=== PATIENT | male | born 1950 | race Caucasian/White ===

== ENCOUNTER 2017-09-24 12:11 | Emergency (ER) | payer MEDICARE, BC ==
[2017-09-24 12:45] VITALS: BP 156/75
[2017-09-24] MEDS ORDERED: Ketorolac 60 MG/2 ML SDV IM ONE (12:56)
--- NOTE | 2017-09-24 13:10 | EDM.PDOC ---
ED HPI GENERAL MEDICAL PROBLEM - General Chief Complaint: Back Pain or Injury Stated Complaint: BACK PAIN Time Seen by Provider: 09/24/17 12:40 Source of Information: Reports: Patient, Family History Limitations: Reports: No Limitations - History of Present Illness INITIAL COMMENTS - FREE TEXT/NARRATIVE: 67-year-old male with chronic back problems on large doses of chronic oxycodone and methadone presents with symptoms of discomfort radiating from his right shoulder through the middle of his back and down into the left buttock and left leg. He just finished a Medrol Dosepak 3 days ago. This was for allergies but he claims his back was no better while on the steroids. However he finished a steroid several days ago and the pain worsened over the past 3 days so there may be a correlation. No new trauma, falls, fevers or chills. Onset: Unknown/Unsure Severity: Moderate Associated Symptoms: Reports: Weakness. Denies: Chest Pain, Cough, Headaches, Nausea/Vomiting, Shortness of Breath Generalized Pain Score (Numeric/FACES): 10 - Related Data Allergies Allergy/AdvReac Type Severity Reaction Status Date / Time aspirin Allergy Severe Anaphylactic Verified 09/24/17 12:28 Shock cyclobenzaprine HCl Allergy Severe Anaphylactic Verified 09/24/17 12:28 [From Flexeril] Shock NSAIDS (Non-Steroidal Allergy Severe Anaphylactic Verified 09/24/17 12:28 Anti-Inflamma Shock Penicillins Allergy Severe Anaphylactic Verified 09/24/17 12:28 Shock procaine HCl [From Novocain] Allergy Severe Anaphylactic Verified 09/24/17 12:28 Shock Home Meds: Home Meds Carisoprodol [Soma] 3 tab PO DAILY 02/23/13 [History] Simvastatin [Zocor] 5 mg PO BEDTIME 02/23/13 [History] Flurazepam HCl 30 mg PO BEDTIME PRN 08/23/14 [History] Methadone 70 mg PO TID 08/23/14 [History] Ondansetron [Zofran] 4 mg PO Q4H PRN 08/23/14 [History] Rizatriptan [Maxalt] 10 mg PO ASDIRECTED PRN 08/23/14 [History] Albuterol [Proair HFA] 2 spray INH Q6H 09/01/15 [History] Ezetimibe [Zetia] 1 tab PO DAILY 09/01/15 [History] Fluticasone/Salmeterol [Advair 250-50 Diskus] 1 puff INH ASDIRECTED 09/01/15 [ History] Polyethylene Glycol [Polyox Wsr-301] 1 gm MC DAILY 09/01/15 [History] oxyCODONE 15 mg PO Q4H 09/01/15 [History] Past Medical History Other HEENT History: shingles in right eye Cardiovascular History: Reports: High Cholesterol Respiratory History: Reports: COPD Gastrointestinal History: Reports: GERD Musculoskeletal History: Reports: Back Pain, Chronic Neurological History: Reports: Migraines Other Dermatologic History: hx shingles - Infectious Disease History Infectious Disease History: Reports: C-Difficile, Measles, Mumps - Past Surgical History HEENT Surgical History: Reports: Oral Surgery GI Surgical History: Reports: Appendectomy, Cholecystectomy Neurological Surgical History: Reports: Discectomy Other Neurological Surgeries/Procedures: multiple back surguries Musculoskeletal Surgical History: Reports: Other (See Below) Other Musculoskeletal Surgeries/Procedures:: Aprox 13 to 14 back surgeries 1/2 procedures to replace and remove metal Social & Family History - Tobacco Use Smoking Status *Q: Current Every Day Smoker Years of Tobacco use: 55 Packs/Tins Daily: 0.5 Used Tobacco, but Quit: No Second Hand Smoke Exposure: Yes - Caffeine Use Caffeine Use: Reports: Coffee - Recreational Drug Use Recreational Drug Use: No ED ROS GENERAL - Review of Systems Review Of Systems: See Below Constitutional: Denies: Fever, Chills Respiratory: Denies: Shortness of Breath GI/Abdominal: Denies: Abdominal Pain, Nausea, Vomiting Musculoskeletal: Reports: Back Pain Neurological: Reports: Paresthesia (Left leg) ED EXAM, GENERAL - Physical Exam Exam: See Below Exam Limited By: No Limitations General Appearance: Alert, No Apparent Distress Respiratory/Chest: No Respiratory Distress Cardiovascular: Regular Rate, Rhythm Back Exam: Muscle Spasm, Paraspinal Tenderness (Very tender to palpation over the paralumbar spine bilaterally. Muscles are very tight.) Extremities: Other (Increased pain to the lower back and buttock with flexion of the left hip but no true radiculopathy). No: Pedal Edema Neurological: Alert, Oriented, No Motor/Sensory Deficits (He has some diffuse symmetric weakness but no asymmetry or focal weakness) Skin Exam: Warm, Dry Course - Vital Signs Last Recorded V/S: Last Vital Signs Temp 97.0 F 09/24/17 12:44 Pulse 90 09/24/17 12:44 Resp 16 09/24/17 12:44 BP 156/75 H 09/24/17 12:44 Pulse Ox 90 L 09/24/17 12:44 - Orders/Labs/Meds Meds: Medications Discontinued Medications Generic Name Dose Route Start Last Admin Trade Name Portia PRN Reason Stop Dose Admin Diazepam 10 mg 09/24/17 13:39 09/24/17 13:42 Valium. PO 09/24/17 13:40 10 mg ONETIME ONE Administration Ketorolac Tromethamine 60 mg 09/24/17 12:56 09/24/17 13:13 Toradol IM 09/24/17 12:57 60 mg ONETIME ONE Administration - Re-Assessments/Exams Free Text/Narrative Re-Assessment/Exam: 09/24/17 13:16 Patient was given 60 mg of Toradol IM. He has a history of "allergies to all NSAIDs" but I suspect he won't react to the Toradol. If he does he'll be given treatment. 09/24/17 13:42 30 minutes after the Toradol the patient was able to stand but still in significant discomfort and having spasm. No allergic reaction. He was given one 10 mg Valium tablet to take orally, and will take 50 mg of prednisone for the next 3-6 days. He should then recheck with his primary provider. Departure - Departure Time of Disposition: 13:52 Disposition: Home, Self-Care 01 Condition: Fair Clinical Impression: Acute exacerbation of chronic low back pain - Discharge Information Instructions: Back Pain, Adult, [id number] Referrals: PCP,None [Primary Care Provider] - Forms: ED Department Discharge Care Plan Goals: Take 5 pills of prednisone with food daily for the next 3-6 days. Use the Valium tablet for muscle relaxation for the rest of today and this evening. Continuing on your current medications. Recheck with your back specialist or a primary doctor in the next 1-2 weeks if not improving satisfactorily.
[2017-09-24] MEDS ORDERED: Diazepam 5 MG Tab PO ONE (13:39)
== END 2017-09-24 13:52 | disposition home or self-care (01) ==
LOC: JP.ED 12:11
DX: M54.5 Low back pain (principal); G89.29 Other chronic pain; E78.00 Pure hypercholesterolemia, unspecified; K21.9 Gastro-esophageal reflux disease without esophagitis; F17.210 Nicotine dependence, cigarettes, uncomplicated; Z88.6 Allergy status to analgesic agent; Z88.8 Allergy status to other drugs, medicaments and biological substances; Z88.0 Allergy status to penicillin; Z79.899 Other long term (current) drug therapy
CPT/HCPCS: 96372; 99283; A9270; J1885

== ENCOUNTER 2019-06-03 07:40 | Day surgery (SDC) | payer MEDICARE, OTHER ==
[2019-06-03] MEDS ORDERED: Propofol 200 MG/20 ML SDV ONE (08:14)
[2019-06-03] MEDS ORDERED: fentaNYL 100 MCG/2 ML SDV ONE (08:14)
[2019-06-03] MEDS ORDERED: Midazolam 1 MG/ML 2 ML SDV ONE (08:14)
[2019-06-03] MEDS ORDERED: Sodium Chloride 0.9% 1,000 ML IV SCH (09:00)
[2019-06-03 10:42] VITALS: BP 140/91; PULSE 74
--- NOTE | 2019-06-03 13:45 | PROC ---
DATE OF PROCEDURE: 06/03/2019 SURGEON: Trenton Armas MD PROCEDURE: Colonoscopy. PRE-PROCEDURE DIAGNOSIS: Positive FIT test. POSTPROCEDURE DIAGNOSES: 1. Positive FIT test. 2. Sigmoid diverticulosis. DESCRIPTION OF PROCEDURE: Risks and goals of the procedure reviewed with the patient. He gave informed consent to proceed. He was brought back to the endoscopy room. Sedation and monitoring provided by Mr. Valentino from the Anesthesia Service. Time-out was held prior to the procedure to confirm right patient, right site, right procedure, as well as identify any potential concerns concerning the procedure, of which there were none. He was placed in a left lateral decubitus position. After adequate sedation was achieved, digital rectal exam was performed, which was unremarkable. Following this, the flexible colonoscope was placed and advanced out through the colon to the cecum. Cecum was identified by the appendiceal orifice and the ileocecal valve. Scope was then slowly withdrawn back through the length of the colon to the rectum where it was retroflexed, straightened, and removed. He was noted to have scattered sigmoid diverticula. No other mucosal polyps, masses, or lesions were seen and the procedure was otherwise completed without complication. He will be monitored in [facility] in outpatient area until fully recovered from IV sedation and discharged to home. Trenton Armas MD /[id number]
== END 2019-06-03 10:44 | disposition home or self-care (01) ==
LOC: JP.SDS 07:40
PROVIDERS: ATTEND Hospitalist
DX: R19.5 Other fecal abnormalities (principal); K57.30 Diverticulosis of large intestine without perforation or abscess without bleeding; J44.9 Chronic obstructive pulmonary disease, unspecified; F17.200 Nicotine dependence, unspecified, uncomplicated
CPT/HCPCS: 45378; J2250; J2704; J3010; J7030

== ENCOUNTER 2019-11-08 06:38 | Emergency (ER) | payer MEDICARE, OTHER ==
[2019-11-08 07:00] VITALS: BP 106/60; PULSE 82
--- NOTE | 2019-11-08 07:18 | EDM.PDOC ---
ED HPI GENERAL MEDICAL PROBLEM - General Chief Complaint: General Stated Complaint: neck pain Time Seen by Provider: 11/08/19 07:16 Source of Information: Reports: Patient History Limitations: Reports: No Limitations - History of Present Illness INITIAL COMMENTS - FREE TEXT/NARRATIVE: 69-year-old male with chronic neck and back pain from previous injuries and surgeries, was helping move heavy objects 2 days ago when he was pushing a large heavy object on wheels when the wheels hit an uneven spot and the object tipped sideways and he had to grab on and hold on to keep it from falling over. He felt a pull in his left neck and upper back, and now has intense sharp pain on the inside of the shoulder blade at the base of the neck and some slight tingling in his left arm in the fourth and fifth finger. No weakness. He is already on oxycodone and muscle relaxers, but he said he has responded well to steroids in the past. He is allergic to all anti-inflammatories. Onset: Other (2 days ago) Location: Reports: Neck, Back Quality: Reports: Ache, Burning, Sharp, Stabbing Worsens with: Reports: Movement Associated Symptoms: Reports: Other (Having difficulty sleeping due to the pain) Left Neck Pain Score (Numeric/FACES): 10 - Related Data Allergies Allergy/AdvReac Type Severity Reaction Status Date / Time aspirin Allergy Severe Anaphylactic Verified 11/08/19 06:58 Shock cyclobenzaprine HCl Allergy Severe Anaphylactic Verified 11/08/19 06:58 [From Flexeril] Shock NSAIDS (Non-Steroidal Allergy Severe Anaphylactic Verified 11/08/19 06:58 Anti-Inflamma Shock Penicillins Allergy Severe Anaphylactic Verified 11/08/19 06:58 Shock procaine HCl [From Novocain] Allergy Severe Anaphylactic Verified 11/08/19 06:58 Shock bee venom protein (honey bee) Allergy Other Verified 11/08/19 06:58 codeine Allergy Hives Verified 11/08/19 06:58 Home Meds: Home Meds Simvastatin [Zocor] 40 mg PO BEDTIME 02/23/13 [History] Ondansetron [Zofran] 4 mg PO Q4H PRN 08/23/14 [History] Rizatriptan [Maxalt] 10 mg PO ASDIRECTED PRN 05/23/15 [History] Albuterol [Proair HFA] 2 spray INH Q6H 09/01/15 [History] Fluticasone Propion/Salmeterol [Advair 250-50 Diskus] 1 puff INH ASDIRECTED PRN 09/01/15 [History] oxyCODONE 15 mg PO QID 09/01/15 [History] Betamethasone Dipropionate [Diprolene AF 0.05% Crm] 1 applic TOP BID 05/30/19 [History] Budesonide/Formoterol Fumarate [Symbicort 160-4.5 Mcg Inhaler] 2 puff IH BID 05/30/19 [History] DULoxetine [Cymbalta] 20 mg PO DAILY 05/30/19 [History] EPINEPHrine [Epipen] 0.3 mg IM ASDIRECTED PRN 05/30/19 [History] Lidocaine 5% [Lidoderm 5%] 1 patch TOP DAILY 05/30/19 [History] Mirtazapine [Remeron] 15 mg PO BEDTIME 05/30/19 [History] Naloxone HCl [Narcan] 4 mg NS ASDIRECTED PRN 05/30/19 [History] Triamcinolone Acetonide [Triamcinolone Acetonide 0.1% Crm] 1 applic TOP ASDIRECTED 05/30/19 [History] cloNIDine [Catapres] 0.1 mg PO Q8H 05/30/19 [History] hydrOXYzine HCL [Hydroxyzine HCl] 50 mg PO TID PRN 05/30/19 [History] raNITIdine HCL [Zantac] 150 mg PO BID PRN 05/30/19 [History] tiZANidine [Zanaflex] 4 mg PO Q8H 05/30/19 [History] Past Medical History HEENT History: Reports: Allergic Rhinitis Other HEENT History: shingles in right eye Cardiovascular History: Reports: High Cholesterol Respiratory History: Reports: COPD, Other (See Below) Other Respiratory History: Lung nodules Gastrointestinal History: Reports: GERD Musculoskeletal History: Reports: Back Pain, Chronic Neurological History: Reports: Migraines Psychiatric History: Reports: Anxiety, Depression, Other (See Below) Other Psychiatric History: adjustment disorder with depression. memory loss Dermatologic History: Reports: Psoriasis Other Dermatologic History: hx shingles - Infectious Disease History Infectious Disease History: Reports: C-Difficile, Measles, Mumps - Past Surgical History Head Surgeries/Procedures: Reports: None HEENT Surgical History: Reports: Oral Surgery Cardiovascular Surgical History: Reports: None Respiratory Surgical History: Reports: None Other Respiratory Surgeries/Procedures: unsure of work up on lung nodules GI Surgical History: Reports: Appendectomy, Cholecystectomy, Colonoscopy, EGD Other GI Surgeries/Procedures: lesion pancrease Neurological Surgical History: Reports: Discectomy, Laminectomy, Spinal Fusion Other Neurological Surgeries/Procedures: multiple back surguries Musculoskeletal Surgical History: Reports: Other (See Below) Other Musculoskeletal Surgeries/Procedures:: Aprox 13 to 14 back surgeries 1/2 procedures to replace and remove metal Dermatological Surgical History: Reports: None Social & Family History - Family History Family Medical History: Noncontributory - Tobacco Use Smoking Status *Q: Current Every Day Smoker Years of Tobacco use: 55 Packs/Tins Daily: 0.5 Used Tobacco, but Quit: No Second Hand Smoke Exposure: Yes - Caffeine Use Caffeine Use: Reports: Coffee - Recreational Drug Use Recreational Drug Use: No ED ROS GENERAL - Review of Systems Review Of Systems: See Below Constitutional: Denies: Fever, Chills Respiratory: Denies: Shortness of Breath, Cough Cardiovascular: Denies: Chest Pain GI/Abdominal: Denies: Abdominal Pain, Nausea, Vomiting Skin: Reports: Rash (Patient does have a rash in his left groin for the past 4 days he wants looked at) Neurological: Reports: Paresthesia (Paresthesias in the fourth and fifth fingers of the left hand, no weakness) Hematologic/Lymphatic: Reports: Other (Developed some bruising on his arms couple of days ago which he is concerned about) ED EXAM, GENERAL - Physical Exam Exam: See Below Exam Limited By: No Limitations General Appearance: Alert, No Apparent Distress, Other (He occasionally moves a certain way which causes a shot of pain in his back and he winces) Head: Atraumatic Neck: Other (Tender fairly diffusely to palpation but more intensely painful in the upper rhomboids on the left side in the mid paracervical muscles in the neck on the right side) Respiratory/Chest: No Respiratory Distress, Other (Chronic hypoxia from smoking and COPD, current O2 sats are 88%) Back Exam: Other (Very tender to palpation of the upper rhomboid on the left side) Neurological: Alert, Oriented, Other (Grasp strength of both hands is symmetric, he has full range of motion of the right and left shoulder actively but it does cause a pinch of discomfort when abducting the left arm) Psychiatric: Normal Affect, Normal Mood Skin Exam: Warm, Dry Course - Vital Signs Last Recorded V/S: Last Vital Signs Temp 97.7 F 11/08/19 07:03 Pulse 82 11/08/19 07:03 Resp 17 11/08/19 07:03 BP 106/60 11/08/19 07:03 Pulse Ox 90 L 11/08/19 07:10 - Re-Assessments/Exams Free Text/Narrative Re-Assessment/Exam: 11/08/19 07:34 Patient says he has responded well to steroids in the past, is allergic to all anti-inflammatories and is already on oxycodone. We will try a Medrol Dosepak he can recheck with his clinic physicians next week if not improving satisfactorily. 11/08/19 07:42 Reassured him about the bruising, likely related to his activity 2 days ago and he may be more prone to this while on the steroids. He was given some triamcinolone to use on the rash in his groin, I do not think it is fungus as it came on fairly suddenly within the last 4 days. If not improving he can recheck that next week as well. Departure - Departure Time of Disposition: 07:48 Disposition: Home, Self-Care 01 Clinical Impression: Rash of groin Strain of rhomboid muscle Qualifiers: Encounter type: initial encounter Qualified Code(s): S29.012A - Strain of muscle and tendon of back wall of thorax, initial encounter - Discharge Information Instructions: Muscle Strain, [id number] Referrals: Huey Ching MD [Primary Care Provider] - Forms: ED Department Discharge Care Plan Goals: Continue your current medications, use the Medrol Dosepak taper as prescribed and recheck next week if not improving satisfactorily. Increase activity as tolerated. Sepsis Event Note (ED) - Evaluation Sepsis Screening Result: No Definite Risk - Focused Exam Vital Signs: Vital Signs Temp Pulse Resp BP Pulse Ox 11/08/19 07:10 90 L 11/08/19 07:03 97.7 F 82 17 106/60 88 L 11/08/19 06:59 97.7 F 82 17 106/60 88 L
== END 2019-11-08 07:48 | disposition home or self-care (01) ==
LOC: JP.ED 06:38
DX: S29.012A Strain of muscle and tendon of back wall of thorax, initial encounter (principal); R21 Rash and other nonspecific skin eruption; E78.00 Pure hypercholesterolemia, unspecified; J44.9 Chronic obstructive pulmonary disease, unspecified; F41.9 Anxiety disorder, unspecified; F32.9 Major depressive disorder, single episode, unspecified; F17.210 Nicotine dependence, cigarettes, uncomplicated; Z88.6 Allergy status to analgesic agent; Z88.8 Allergy status to other drugs, medicaments and biological substances; Z88.0 Allergy status to penicillin; Z88.5 Allergy status to narcotic agent; Z91.030 Bee allergy status; Z79.899 Other long term (current) drug therapy; X50.9XXA Other and unspecified overexertion or strenuous movements or postures, initial encounter
CPT/HCPCS: 99283

== ENCOUNTER 2020-06-17 13:50 | Observation (INO) | payer MEDICARE, OTHER ==
[2020-06-17] MEDS ORDERED: HYDROmorphone 0.5 MG/0.5 ML Syringe IVPUSH ONE ×2 (15:21→17:02)
[2020-06-17] MEDS ORDERED: Iopamidol 612 MG/ML 100 ML Bottle IV PRN (15:26)
[2020-06-17] MEDS ORDERED: Sodium Chloride 0.9% 71 ML IV ONE (15:26)
--- NOTE | 2020-06-17 15:36 | EDM.PDOC ---
ED HPI GENERAL MEDICAL PROBLEM - General Chief Complaint: Abdominal Pain Stated Complaint: ABD PAIN Time Seen by Provider: 06/17/20 15:25 Source of Information: Reports: Patient, Old Records, RN History Limitations: Reports: No Limitations - History of Present Illness INITIAL COMMENTS - FREE TEXT/NARRATIVE: 69 yo male smoker who denies alcohol use presents with a week of progressive epigastric pain. Is only able to swallow liquids now and even has increased pain with drinking. No nausea, vomiting, or fever. Has a pHx remotely of "infectious ileitis" and states that this feels the same. Has not discussed his condition at any time over the past week with his primary care provider. Onset: Gradual Duration: Week(s): (~1), Getting Worse Location: Reports: Abdomen (epigastrium) Quality: Reports: Ache Severity: Moderate Improves with: Reports: Other (not eating or drinking) Worsens with: Reports: Eating (and drinking to less of an extent than eating. ) Context: Reports: Other (See HPI) Associated Symptoms: Reports: No Other Symptoms Treatments MANAGER DATABASE: Reports: Other (see below) (none) - Related Data Allergies Allergy/AdvReac Type Severity Reaction Status Date / Time aspirin Allergy Severe Anaphylactic Verified 06/17/20 14:57 Shock cyclobenzaprine HCl Allergy Severe Anaphylactic Verified 06/17/20 14:57 [From Flexeril] Shock NSAIDS (Non-Steroidal Allergy Severe Anaphylactic Verified 06/17/20 14:57 Anti-Inflamma Shock Penicillins Allergy Severe Anaphylactic Verified 06/17/20 14:57 Shock procaine HCl [From Novocain] Allergy Severe Anaphylactic Verified 06/17/20 14:57 Shock bee venom protein (honey bee) Allergy Other Verified 06/17/20 14:57 codeine Allergy Hives Verified 06/17/20 14:57 Home Meds: Home Meds Simvastatin [Zocor] 40 mg PO BEDTIME 02/23/13 [History] Ondansetron [Zofran] 4 mg PO Q4H PRN 08/23/14 [History] Rizatriptan [Maxalt] 10 mg PO ASDIRECTED PRN 08/23/14 [History] Albuterol [Proair HFA] 2 spray INH Q6H 09/01/15 [History] Fluticasone Propion/Salmeterol [Advair 250-50 Diskus] 1 puff INH ASDIRECTED PRN 09/01/15 [History] oxyCODONE 15 mg PO QID 09/01/15 [History] Betamethasone Dipropionate [Diprolene AF 0.05% Crm] 1 applic TOP BID 05/30/19 [History] Budesonide/Formoterol Fumarate [Symbicort 160-4.5 Mcg Inhaler] 2 puff IH BID 05/30/19 [History] DULoxetine [Cymbalta] 20 mg PO DAILY 05/30/19 [History] EPINEPHrine [Epipen] 0.3 mg IM ASDIRECTED PRN 05/30/19 [History] Lidocaine 5% [Lidoderm 5%] 1 patch TOP DAILY 05/30/19 [History] Mirtazapine [Remeron] 15 mg PO BEDTIME 05/30/19 [History] Naloxone HCl [Narcan] 4 mg NS ASDIRECTED PRN 05/30/19 [History] Triamcinolone Acetonide [Triamcinolone Acetonide 0.1% Crm] 1 applic TOP ASDIRECTED 05/30/19 [History] cloNIDine [Catapres] 0.1 mg PO Q8H PRN 05/30/19 [History] raNITIdine HCL [Zantac] 150 mg PO BID PRN 05/30/19 [History] tiZANidine [Zanaflex] 4 mg PO QID 05/30/19 [History] Past Medical History HEENT History: Reports: Allergic Rhinitis Other HEENT History: shingles in right eye Cardiovascular History: Reports: High Cholesterol Respiratory History: Reports: COPD, Other (See Below) Other Respiratory History: Lung nodules Gastrointestinal History: Reports: GERD Musculoskeletal History: Reports: Back Pain, Chronic Neurological History: Reports: Migraines Psychiatric History: Reports: Anxiety, Depression, Other (See Below) Other Psychiatric History: adjustment disorder with depression. memory loss Dermatologic History: Reports: Psoriasis Other Dermatologic History: hx shingles - Infectious Disease History Infectious Disease History: Reports: C-Difficile, Measles, Mumps - Past Surgical History Head Surgeries/Procedures: Reports: None HEENT Surgical History: Reports: Oral Surgery Cardiovascular Surgical History: Reports: None Respiratory Surgical History: Reports: None Other Respiratory Surgeries/Procedures: unsure of work up on lung nodules GI Surgical History: Reports: Appendectomy, Cholecystectomy, Colonoscopy, EGD Other GI Surgeries/Procedures: lesion pancrease Neurological Surgical History: Reports: Discectomy, Laminectomy, Spinal Fusion Other Neurological Surgeries/Procedures: multiple back surguries Musculoskeletal Surgical History: Reports: Other (See Below) Other Musculoskeletal Surgeries/Procedures:: Aprox 13 to 14 back surgeries 1/2 procedures to replace and remove metal Dermatological Surgical History: Reports: None Social & Family History - Family History Family Medical History: No Pertinent Family History - Tobacco Use Tobacco Use Status *Q: Current Every Day Tobacco User Years of Tobacco use: 60 Packs/Tins Daily: 1 Used Tobacco, but Quit: No - Caffeine Use Caffeine Use: Reports: Coffee - Recreational Drug Use Recreational Drug Use: No ED ROS GENERAL - Review of Systems Review Of Systems: See Below Constitutional: Reports: No Symptoms HEENT: Reports: No Symptoms Respiratory: Reports: No Symptoms Cardiovascular: Reports: No Symptoms Endocrine: Reports: No Symptoms GI/Abdominal: Reports: Abdominal Pain : Reports: No Symptoms Musculoskeletal: Reports: No Symptoms Skin: Reports: No Symptoms Neurological: Reports: No Symptoms ED EXAM, GI/ABD - Physical Exam Exam: See Below Exam Limited By: No Limitations General Appearance: Alert, WD/WN, No Apparent Distress Eyes: Bilateral: Normal Appearance Ears: Normal External Exam, Normal Canal, Hearing Grossly Normal Nose: Normal Inspection, No Blood Throat/Mouth: Normal Inspection, Normal Lips, Normal Oropharynx, Normal Voice, No Airway Compromise Head: Atraumatic, Normocephalic Neck: Normal Inspection Respiratory/Chest: No Respiratory Distress, Lungs Clear, Normal Breath Sounds, No Accessory Muscle Use Cardiovascular: Regular Rate, Rhythm, No Edema GI/Abdominal Exam: Normal Bowel Sounds, Soft, No Distention, Guarding, Tender (epigastrium). No: Non-Tender, Distended, Rigid, Rebound Extremities: Normal Inspection, Normal Range of Motion, Non-Tender, No Pedal Edema Neurological: Alert, Oriented, CN II-XII Intact, Normal Cognition, No Motor/Sensory Deficits Psychiatric: Normal Affect, Normal Mood Skin Exam: Warm, Dry, Intact, Normal Color, No Rash Course - Vital Signs Last Recorded V/S: Last Vital Signs Temp 36.2 C 06/17/20 15:07 Pulse 67 06/17/20 17:01 Resp 20 06/17/20 15:07 BP 132/93 H 06/17/20 17:01 Pulse Ox 98 06/17/20 15:51 - Orders/Labs/Meds Orders: Active Orders 24 hr Category Date Time Status CRP [C-REACTIVE PROTEIN] [CHEM] Stat Lab 06/17/20 17:41 Ordered Sodium Chloride 0.9% [Normal Saline] 1,000 ml Med 06/17/20 16:30 Active IV ASDIRECTED Sodium Chloride 0.9% [Saline Flush] Med 06/17/20 15:20 Active 10 ml FLUSH ASDIRECTED PRN Sodium Chloride 0.9% [Saline Flush] Med 06/17/20 15:26 Active 10 ml FLUSH ONETIME PRN Saline Lock Insert [OM.PC] Routine Oth 06/17/20 15:20 Ordered Medication Orders Sodium Chloride (Normal Saline) 1,000 mls @ 150 mls/hr IV ASDIRECTED GREER Last Admin: 06/17/20 16:35 Dose: 150 mls/hr Documented by: PAUL Sodium Chloride (Sodium Chloride 0.9% 10 Ml Syringe) 10 ml FLUSH ASDIRECTED PRN PRN Reason: Keep Vein Open Last Admin: 06/17/20 16:10 Dose: 10 ml Documented by: Admin: 06/17/20 16:09 Dose: 10 ml Documented by: PAUL Sodium Chloride (Sodium Chloride 0.9% 10 Ml Syringe) 10 ml FLUSH ONETIME PRN PRN Reason: PER RADIOLOGY PROTOCOL Last Admin: 06/17/20 16:30 Dose: 10 ml Documented by: Admin: 06/17/20 16:10 Dose: 10 ml Documented by: PAUL Labs: Laboratory Tests 06/17/20 06/17/20 06/17/20 Range/Units 15:19 15:42 15:42 WBC 8.4 (4.5-11.0) K/uL RBC 5.40 (4.30-5.90) M/uL Hgb 15.2 H (12.0-15.0) g/dL Hct 48.0 (40.0-54.0) % MCV 89 (80-98) fL MCH 28 (27-31) pg MCHC 32 (32-36) % Plt Count 288 (150-400) K/uL Sodium 135 L (140-148) mmol/L Potassium 4.1 (3.6-5.2) mmol/L Chloride 98 L (100-108) mmol/L Carbon Dioxide 29 (21-32) mmol/L Anion Gap 12.1 (5.0-14.0) mmol/L BUN 7 (7-18) mg/dL Creatinine 0.9 (0.8-1.3) mg/dL Est Cr Clr Drug Dosing 73.50 mL/min Estimated GFR (MDRD) > 60 (>60) Glucose 84 (74-106) mg/dL Calcium 8.9 (8.5-10.1) mg/dL Total Bilirubin (0.2-1.0) mg/dL Direct Bilirubin (0.0-0.2) mg/dL Indirect Bilirubin AST (15-37) U/L ALT (12-78) U/L Alkaline Phosphatase (46-116) U/L Total Protein (6.4-8.2) g/dL Albumin (3.4-5.0) g/dL Globulin (2.3-3.5) g/dL Albumin/Globulin Ratio (1.2-2.2) Lipase 31 L (73-393) U/L 03/17/21 Range/Units 16:35 WBC (4.5-11.0) K/uL RBC (4.30-5.90) M/uL Hgb (12.0-15.0) g/dL Hct (40.0-54.0) % MCV (80-98) fL MCH (27-31) pg MCHC (32-36) % Plt Count (150-400) K/uL Sodium (140-148) mmol/L Potassium (3.6-5.2) mmol/L Chloride (100-108) mmol/L Carbon Dioxide (21-32) mmol/L Anion Gap (5.0-14.0) mmol/L BUN (7-18) mg/dL Creatinine (0.8-1.3) mg/dL Est Cr Clr Drug Dosing mL/min Estimated GFR (MDRD) (>60) Glucose (74-106) mg/dL Calcium (8.5-10.1) mg/dL Total Bilirubin 0.5 D (0.2-1.0) mg/dL Direct Bilirubin 0.16 (0.0-0.2) mg/dL Indirect Bilirubin 0.34 AST 20 (15-37) U/L ALT 27 (12-78) U/L Alkaline Phosphatase 102 (46-116) U/L Total Protein 6.5 (6.4-8.2) g/dL Albumin 3.6 (3.4-5.0) g/dL Globulin 2.9 (2.3-3.5) g/dL Albumin/Globulin Ratio 1.2 (1.2-2.2) Lipase (73-393) U/L Meds: Medications Generic Name Dose Route Start Last Admin Trade Name Freq PRN Reason Stop Dose Admin Sodium Chloride 1,000 mls @ 150 mls/hr 06/17/20 16:30 06/17/20 16:35 Normal Saline IV 150 mls/hr ASDIRECTED GREER Administration Sodium Chloride 10 ml 06/17/20 15:20 06/17/20 16:10 Sodium Chloride 0.9% 10 Ml Syringe FLUSH 10 ml ASDIRECTED PRN Administration Keep Vein Open Sodium Chloride 10 ml 06/17/20 15:26 06/17/20 16:30 Sodium Chloride 0.9% 10 Ml Syringe FLUSH 10 ml ONETIME PRN Administration PER RADIOLOGY PROTOCOL Discontinued Medications Generic Name Dose Route Start Last Admin Trade Name Freq PRN Reason Stop Dose Admin Hydromorphone HCl 0.25 mg 06/17/20 15:21 06/17/20 16:10 Hydromorphone 0.5 Mg/0.5 Ml Syringe IVPUSH 06/17/20 15:22 0.25 mg ONETIME ONE Administration Hydromorphone HCl 0.5 mg 06/17/20 17:02 06/17/20 17:12 Hydromorphone 0.5 Mg/0.5 Ml Syringe IVPUSH 06/17/20 17:03 0.5 mg ONETIME ONE Administration Sodium Chloride 71 mls @ 3 mls/sec 06/17/20 15:26 06/17/20 16:30 Normal Saline IV 06/17/20 15:27 3 mls/sec ONETIME ONE Administration Iopamidol 100 ml 06/17/20 15:26 06/17/20 16:31 Iopamidol 612 Mg/Ml 100 Ml Bottle IV 100 ml . DIRECTED PRN Administration RADIOLOGY EXAM - Radiology Interpretation Free Text/Narrative:: IMPRESSION: 1. Status post cholecystectomy. 2. Nonobstructive dilatation of the biliary duct system with extrahepatic common bile duct measuring 13 mm in diameter on the pancreatic duct measuring 6 mm in diameter; if clinically needed, suggest obtaining an MRCP. 3. Negative CT abdomen and pelvis with intravenous contrast otherwise. Please note that all CT scans at this facility use dose modulation, iterative reconstruction, and/or weight-based dosing when appropriate to reduce radiation dose to as low as reasonably achievable. Dictated by Samantha Daniel MD @ Jun 17 2020 5:03PM CT abd/pelvis with IV contrast- CT Results Date: 06/17/20 CT Results Time: 17:13 Departure - Departure Time of Disposition: 17:50 Disposition: Refer to Observation Condition: Fair Clinical Impression: Epigastric pain - Discharge Information *PRESCRIPTION DRUG MONITORING PROGRAM REVIEWED*: Not Applicable *COPY OF PRESCRIPTION DRUG MONITORING REPORT IN PATIENT [place]: Not Applicable Referrals: Huey Ching MD [Primary Care Provider] - Forms: ED Department Discharge Sepsis Event Note (ED) - Evaluation Sepsis Screening Result: No Definite Risk - Focused Exam Vital Signs: Vital Signs Temp Pulse Resp BP Pulse Ox 06/17/20 17:01 67 132/93 H 06/17/20 15:51 68 122/86 98 06/17/20 15:07 36.2 C 70 20 116/79 89 L 06/17/20 14:30 36.4 C 89 22 H 116/79 94 L - My Orders Last 24 Hours: My Active Orders 06/17/20 15:20 Sodium Chloride 0.9% [Saline Flush] 10 ml FLUSH ASDIRECTED PRN Saline Lock Insert [OM.PC] Routine 06/17/20 15:26 Sodium Chloride 0.9% [Saline Flush] 10 ml FLUSH ONETIME PRN 06/17/20 16:30 Sodium Chloride 0.9% [Normal Saline] 1,000 ml IV ASDIRECTED 06/17/20 17:41 CRP [C-REACTIVE PROTEIN] [CHEM] Stat - Assessment/Plan Last 24 Hours: My Active Orders 06/17/20 15:20 Sodium Chloride 0.9% [Saline Flush] 10 ml FLUSH ASDIRECTED PRN Saline Lock Insert [OM.PC] Routine 06/17/20 15:26 Sodium Chloride 0.9% [Saline Flush] 10 ml FLUSH ONETIME PRN 06/17/20 16:30 Sodium Chloride 0.9% [Normal Saline] 1,000 ml IV ASDIRECTED 06/17/20 17:41 CRP [C-REACTIVE PROTEIN] [CHEM] Stat
[2020-06-17] MEDS: Sodium Chloride 0.9% 10 ML Syringe FLUSH PRN ×4 (16:09→16:30)
[2020-06-17] MEDS ORDERED: Sodium Chloride 0.9% 1,000 ML IV SCH (16:30)
--- NOTE | 2020-06-17 17:10 | CRLCT ---
INDICATION: Epigastric abdominal pain; history of uveitis. Comparison: None. TECHNIQUE: CT abdomen and pelvis with intravenous contrast; coronal and sagittal reformats. FINDINGS: No focal hepatic or splenic pathology. No pancreatic pathology. Status post cholecystectomy. Nonobstructive dilatation of the biliary duct system with the extrahepatic common bile duct measuring 13 mm in diameter. Dilatation of the pancreatic duct measuring 6.3 mm in diameter. No evidence of choledocholithiasis. No mass lesions identified within the pancreatic head. No abnormal intra pulmonary nodular densities are identified through the lung bases. No evidence of pleural effusion. No adrenal pathology. No kidney stones or obstructive uropathy. No retroperitoneal lymphadenopathy. No evidence of abdominal or pelvic ascites. Diverticulosis sigmoid colon without any CT evidence of diverticulitis or abscess. Enlarged prostate gland. Copious amounts of retained stool identified in the colon. The appendix is not clearly visualized; no inflammatory changes surrounding the cecum. IMPRESSION: 1. Status post cholecystectomy. 2. Nonobstructive dilatation of the biliary duct system with extrahepatic common bile duct measuring 13 mm in diameter on the pancreatic duct measuring 6 mm in diameter; if clinically needed, suggest obtaining an MRCP. 3. Negative CT abdomen and pelvis with intravenous contrast otherwise. Please note that all CT scans at this facility use dose modulation, iterative reconstruction, and/or weight-based dosing when appropriate to reduce radiation dose to as low as reasonably achievable. Dictated by Samantha Daniel MD @ Jun 17 2020 5:03PM Signed by Dr. Samantha Daniel @ Jun 17 2020 5:08PM
[2020-06-17] MEDS ORDERED: Pantoprazole 40 MG Vial IVPUSH SCH (17:45)
[2020-06-17] MEDS ORDERED: Acetaminophen 325 MG Tab PO PRN (19:22)
[2020-06-17] MEDS ORDERED: LORazepam 2 MG/ML SDV IV PRN (19:22)
[2020-06-17] MEDS ORDERED: cloNIDine 0.1 MG Tab PO PRN (19:22)
[2020-06-17] MEDS ORDERED: HYDROmorphone/Normal Saline 15 MG/30 ML PCA IV PRN (19:22)
[2020-06-17] MEDS ORDERED: Albuterol 0.083% 2.5 MG/3 ML Neb Soln NEB PRN (19:22)
[2020-06-17] MEDS ORDERED: Naloxone 0.4 MG/ML SDV IVPUSH PRN (19:22)
[2020-06-17] MEDS ORDERED: Bisacodyl 5 MG Tab PO PRN (19:22)
[2020-06-17] MEDS ORDERED: Docusate Sodium 100 MG Cap PO PRN (19:22)
[2020-06-17] MEDS ORDERED: Ondansetron 4 MG Tab.DIS PO PRN (19:22)
[2020-06-17] MEDS: Dextrose 5%-Lactated Ringers 1,000 ML IV SCH (20:24)
[2020-06-17] MEDS ORDERED: Formoterol/Mometasone 200-5 MCG 8.8 GM Inhaler IH SCH (21:00)
[2020-06-17] MEDS ORDERED: Pantoprazole 40 MG Vial IVPUSH ONE (21:30)
--- NOTE | 2020-06-17 21:31 | PCM.HP.2 ---
H&P History of Present Illness - General Date of Service: 06/17/20 Admit Problem/Dx: Admission Diagnosis/Problem Admission Diagnosis/Problem Epigastric pain Source of Information: Patient, Provider, RN History Limitations: Reports: No Limitations - History of Present Illness Initial Comments - Free Text/Narative: chief complaint: can't swallow 69 yo male smoker who denies alcohol use presents with a week of progressive epigastric pain. Is only able to swallow liquids now and even has increased pain with drinking. No nausea, vomiting, or fever. Has a pHx remotely of "infectious ileitis" and states that this feels the same. Has not discussed his condition at any time over the past week with his primary care provider. Onset: Gradual Onset of Symptoms: Reports: Gradual (sick for 7 days but report slowly losing wt over the past 2 years) Duration of Symptoms: Reports: Week(s):, Constant, Other (reports has been losing weight ) Location: Reports: Neck, Abdomen Quality: Reports: Other (painful swallowing and pain in abdomen) Improves with: Reports: None Worsens with: Reports: Eating Associated Symptoms: Reports: Loss of Appetite Upper Abdomen Pain Score (Numeric/FACES): 8 Back Pain Score (Numeric/FACES): 8 - Related Data Allergies/Adverse Reactions: Allergies Allergy/AdvReac Type Severity Reaction Status Date / Time aspirin Allergy Severe Anaphylactic Verified 06/17/20 14:57 Shock cyclobenzaprine HCl Allergy Severe Anaphylactic Verified 06/17/20 14:57 [From Flexeril] Shock NSAIDS (Non-Steroidal Allergy Severe Anaphylactic Verified 06/17/20 14:57 Anti-Inflamma Shock Penicillins Allergy Severe Anaphylactic Verified 06/17/20 14:57 Shock procaine HCl [From Novocain] Allergy Severe Anaphylactic Verified 06/17/20 14:57 Shock bee venom protein (honey bee) Allergy Other Verified 06/17/20 14:57 codeine Allergy Hives Verified 06/17/20 14:57 Home Medications: Home Meds Simvastatin [Zocor] 40 mg PO BEDTIME 02/23/13 [History] Ondansetron [Zofran] 4 mg PO Q4H PRN 08/23/14 [History] Rizatriptan [Maxalt] 10 mg PO ASDIRECTED PRN 08/23/14 [History] Albuterol [Proair HFA] 2 spray INH Q6H 09/01/15 [History] Fluticasone Propion/Salmeterol [Advair 250-50 Diskus] 1 puff INH ASDIRECTED PRN 09/01/15 [History] oxyCODONE 15 mg PO QID 09/01/15 [History] Betamethasone Dipropionate [Diprolene AF 0.05% Crm] 1 applic TOP BID 05/30/19 [History] Budesonide/Formoterol Fumarate [Symbicort 160-4.5 Mcg Inhaler] 2 puff IH BID 05/30/19 [History] DULoxetine [Cymbalta] 20 mg PO DAILY 05/30/19 [History] EPINEPHrine [Epipen] 0.3 mg IM ASDIRECTED PRN 05/30/19 [History] Lidocaine 5% [Lidoderm 5%] 1 patch TOP DAILY 05/30/19 [History] Mirtazapine [Remeron] 15 mg PO BEDTIME 05/30/19 [History] Naloxone HCl [Narcan] 4 mg NS ASDIRECTED PRN 05/30/19 [History] Triamcinolone Acetonide [Triamcinolone Acetonide 0.1% Crm] 1 applic TOP ASDIRECTED 05/30/19 [History] cloNIDine [Catapres] 0.1 mg PO Q8H PRN 05/30/19 [History] raNITIdine HCL [Zantac] 150 mg PO BID PRN 05/30/19 [History] tiZANidine [Zanaflex] 4 mg PO QID 05/30/19 [History] Past Medical History - Past Health History Medical/Surgical History: Denies Medical/Surgical History HEENT History: Reports: Allergic Rhinitis Other HEENT History: shingles in right eye Cardiovascular History: Reports: High Cholesterol Respiratory History: Reports: COPD, Other (See Below) Other Respiratory History: Lung nodules Gastrointestinal History: Reports: GERD Musculoskeletal History: Reports: Back Pain, Chronic Neurological History: Reports: Migraines Psychiatric History: Reports: Anxiety, Depression, Other (See Below) Other Psychiatric History: adjustment disorder with depression. memory loss Dermatologic History: Reports: Psoriasis Other Dermatologic History: hx shingles - Infectious Disease History Infectious Disease History: Reports: C-Difficile, Measles, Mumps - Past Surgical History Head Surgeries/Procedures: Reports: None HEENT Surgical History: Reports: Oral Surgery Cardiovascular Surgical History: Reports: None Respiratory Surgical History: Reports: None Other Respiratory Surgeries/Procedures: unsure of work up on lung nodules GI Surgical History: Reports: Appendectomy, Cholecystectomy, Colonoscopy, EGD Other GI Surgeries/Procedures: lesion pancrease Neurological Surgical History: Reports: Discectomy, Laminectomy, Spinal Fusion Other Neurological Surgeries/Procedures: multiple back surguries Musculoskeletal Surgical History: Reports: Other (See Below) Other Musculoskeletal Surgeries/Procedures:: Aprox 13 to 14 back surgeries 1/2 procedures to replace and remove metal Dermatological Surgical History: Reports: None Social & Family History - Family History Family Medical History: No Pertinent Family History - Tobacco Use Tobacco Use Status *Q: Current Every Day Tobacco User Years of Tobacco use: 58 Packs/Tins Daily: 0.7 Used Tobacco, but Quit: No Second Hand Smoke Exposure: Yes - Caffeine Use Caffeine Use: Reports: Coffee - Recreational Drug Use Recreational Drug Use: No - Living Situation & Occupation Living situation: Reports: , with Spouse, with Family (lives with and 3 children in [place], [place].) H&P Review of Systems - Review of Systems: Review Of Systems: See Below General: Reports: Weakness, Decreased Appetite (unable to eat for the past week, able to tolerate fluids), Weight Loss (over the past two years.) HEENT: Reports: Other (full dentures) Pulmonary: Reports: Other (smoke at least one pack per day for years) Cardiovascular: Reports: No Symptoms Gastrointestinal: Reports: Abdominal Pain, Anorexia, Decreased Appetite, Difficulty Swallowing Genitourinary: Reports: No Symptoms Musculoskeletal: Reports: Back Pain (report 13 or 14 surgeries to back, constant chronic pain.) Skin: Reports: Bruising Psychiatric: Reports: No Symptoms Neurological: Reports: No Symptoms, Pre-Existing Deficit (ambulates with a cane due to back pain) Hematologic/Lymphatic: Reports: No Symptoms Immunologic: Reports: No Symptoms Exam - Exam Exam: See Below - Vital Signs Vital Signs: Last Vital Signs Temp 96.3 F L 06/17/20 19:44 Pulse 69 06/17/20 19:44 Resp 16 06/17/20 19:44 BP 140/82 06/17/20 19:44 Pulse Ox 94 L 06/17/20 20:04 Weight: 150 lb - Exam Quality Assessment: DVT Prophylaxis General: Alert, Oriented, Cooperative, Mild Distress HEENT: PERRLA, Hearing Intact, Mucosa Moist & Bruno, Nares Patent, Normal Nasal Septum, Posterior Pharynx Clear, Conjunctiva Clear, EOMI, EACs Clear, TMs Clear Neck: Supple, Trachea Midline, 2 Lungs: Clear to Auscultation, Normal Respiratory Effort Cardiovascular: Regular Rate, Regular Rhythm, Normal S1, Normal S2 GI/Abdominal Exam: Normal Bowel Sounds, Soft, No Abnormal Bruit, Tender (epigastric area) (Male) Exam: Deferred Rectal (Males) Exam: Deferred Back Exam: Decreased Range of Motion Extremities: Normal Inspection, Normal Range of Motion, Non-Tender, No Pedal Edema, Normal Capillary Refill Skin: Warm, Dry, Intact Neurological: Strength Equal Bilateral Neuro Extensive - Mental Status: Alert, Oriented x3, Normal Mood/Affect, Normal Cognition Neuro Extensive - Motor, Sensory, Reflexes: CN II-XII Intact, Normal Gait, Normal Reflexes Psychiatric: Alert, Normal Affect, Normal Mood - Patient Data Lab Results Last 24 hrs: Laboratory Results - last 24 hr 06/17/20 06/17/20 06/17/20 Range/Units 15:19 15:42 15:42 WBC 8.4 (4.5-11.0) K/uL RBC 5.40 (4.30-5.90) M/uL Hgb 15.2 H (12.0-15.0) g/dL Hct 48.0 (40.0-54.0) % MCV 89 (80-98) fL MCH 28 (27-31) pg MCHC 32 (32-36) % Plt Count 288 (150-400) K/uL Sodium 135 L (140-148) mmol/L Potassium 4.1 (3.6-5.2) mmol/L Chloride 98 L (100-108) mmol/L Carbon Dioxide 29 (21-32) mmol/L Anion Gap 12.1 (5.0-14.0) mmol/L BUN 7 (7-18) mg/dL Creatinine 0.9 (0.8-1.3) mg/dL Est Cr Clr Drug Dosing 73.50 mL/min Estimated GFR (MDRD) > 60 (>60) Glucose 84 (74-106) mg/dL Calcium 8.9 (8.5-10.1) mg/dL Total Bilirubin (0.2-1.0) mg/dL Direct Bilirubin (0.0-0.2) mg/dL Indirect Bilirubin AST (15-37) U/L ALT (12-78) U/L Alkaline Phosphatase (46-116) U/L C-Reactive Protein (0.0-0.3) mg/dL Total Protein (6.4-8.2) g/dL Albumin (3.4-5.0) g/dL Globulin (2.3-3.5) g/dL Albumin/Globulin Ratio (1.2-2.2) Lipase 31 L (73-393) U/L 06/17/20 06/17/20 Range/Units 16:35 17:41 WBC (4.5-11.0) K/uL RBC (4.30-5.90) M/uL Hgb (12.0-15.0) g/dL Hct (40.0-54.0) % MCV (80-98) fL MCH (27-31) pg MCHC (32-36) % Plt Count (150-400) K/uL Sodium (140-148) mmol/L Potassium (3.6-5.2) mmol/L Chloride (100-108) mmol/L Carbon Dioxide (21-32) mmol/L Anion Gap (5.0-14.0) mmol/L BUN (7-18) mg/dL Creatinine (0.8-1.3) mg/dL Est Cr Clr Drug Dosing mL/min Estimated GFR (MDRD) (>60) Glucose (74-106) mg/dL Calcium (8.5-10.1) mg/dL Total Bilirubin 0.5 D (0.2-1.0) mg/dL Direct Bilirubin 0.16 (0.0-0.2) mg/dL Indirect Bilirubin 0.34 AST 20 (15-37) U/L ALT 27 (12-78) U/L Alkaline Phosphatase 102 (46-116) U/L C-Reactive Protein 0.31 H (0.0-0.3) mg/dL Total Protein 6.5 (6.4-8.2) g/dL Albumin 3.6 (3.4-5.0) g/dL Globulin 2.9 (2.3-3.5) g/dL Albumin/Globulin Ratio 1.2 (1.2-2.2) Lipase (73-393) U/L Result Diagrams: 06/17/20 15:19 06/17/20 15:42 Sepsis Event Note - Evaluation Sepsis Screening Result: No Definite Risk - Focused Exam Vital Signs: Vital Signs Temp Pulse Resp BP Pulse Ox 06/17/20 20:04 94 L 06/17/20 19:44 96.3 F L 69 16 140/82 91 L 06/17/20 18:48 65 146/93 H 95 06/17/20 17:49 66 123/73 96 06/17/20 17:01 67 132/93 H 06/17/20 15:51 68 122/86 98 06/17/20 15:07 97.2 F 70 20 116/79 89 L 06/17/20 14:30 97.6 F 89 22 H 116/79 94 L - Problem List (1) Epigastric pain SNOMED Code(s): 28566082 ICD Code: R10.13 - EPIGASTRIC PAIN Status: Acute Priority: High Current Visit: Yes (2) Chronic back pain greater than 3 months duration SNOMED Code(s): 233964480512 ICD Code: M54.9 - DORSALGIA, UNSPECIFIED; G89.29 - OTHER CHRONIC PAIN Status: Acute Priority: High Current Visit: Yes (3) Tobacco abuse SNOMED Code(s): 542354695 ICD Code: Z72.0 - TOBACCO USE Status: Acute Priority: High Current Visit: Yes Problem List Initiated/Reviewed/Updated: Yes Orders Last 24hrs: Active Orders 24 hr Category Date Time Status Cardiac Monitoring [RC] CONTINUOUS Care 06/17/20 19:22 Active Communication Order [RC] STAT Care 06/17/20 19:22 Active Intake and Output [RC] QSHIFT Care 06/17/20 19:22 Active Notify Provider Consults [RC] ASDIRECTED Care 06/17/20 19:22 Active Notify Provider Vital Signs [RC] ASDIRECTED Care 06/17/20 19:22 Active Notify Provider [RC] PRN Care 06/17/20 19:22 Active Oxygen Therapy [RC] PRN Care 06/17/20 19:22 Active REVIEW NURSE Record [RC] PER UNIT ROUTINE Care 06/17/20 19:22 Active Pulse Oximetry [RC] CONTINUOUS Care 06/17/20 19:22 Active Pulse Oximetry [RC] CONTINUOUS Care 06/17/20 19:22 Active RT Aerosol Therapy [RC] ASDIRECTED Care 06/17/20 19:22 Active Up With Assistance [RC] ASDIRECTED Care 06/17/20 19:22 Active VTE/DVT Education [RC] Per Unit Routine Care 06/17/20 19:22 Active Vital Signs [RC] Q4H Care 06/17/20 19:22 Active Consult to Physician [CONS] Routine Cons 06/17/20 19:22 Ordered Clear Liquid Diet [DIET] Diet 06/17/20 Dinner Active Nothing per Oral After Midnight Diet [DIET] Diet 06/17/20 Breakfast Active BASIC METABOLIC PANEL,BMP [CHEM] AM Lab 06/18/20 05:11 Ordered CBC WITH AUTO DIFF [HEME] AM Lab 06/18/20 05:11 Ordered Acetaminophen [TylenoL] Med 06/17/20 19:22 Active 650 mg PO Q4H PRN Albuterol [Proventil Neb Soln] Med 06/17/20 19:22 Active 2.5 mg NEB Q4H PRN Albuterol/Ipratropium [DuoNeb 3.0-0.5 MG/3 ML] Med 06/17/20 19:22 Active 3 ml NEB QID PRN Dextrose 5%-Lactated Ringers 1,000 ml Med 06/17/20 19:22 Active IV ASDIRECTED Docusate Sodium [Colace] Med 06/17/20 19:22 Active 100 mg PO BID PRN HYDROmorphone/Normal Saline [Dilaudid REVIEW NURSE 15 MG in NS Med 06/17/20 19:22 Active 30 ML] See Protocol IV ASDIRECTED PRN LORazepam [Ativan] Med 06/17/20 19:22 Active 1 mg IV Q6H PRN Lidocaine 5% [Lidoderm 5%] Med 06/18/20 09:00 Active 700 mg TOP DAILY Mometasone/Formoterol [Dulera 200-5 MCG] Med 06/17/20 21:00 Active 2 puff IH BID Naloxone [Narcan] Med 06/17/20 19:22 Active 0.4 mg IVPUSH Q2M PRN Ondansetron [Zofran ODT] Med 06/17/20 19:22 Active 4 mg PO Q6H PRN Pantoprazole [ProTONIX IV] Med 06/18/20 09:00 Active 40 mg IV Q12H Pantoprazole [ProTONIX IV] Med 06/17/20 21:30 Once 80 mg IVPUSH ONETIME ONE Sodium Chloride 0.9% [Normal Saline] 1,000 ml Med 06/17/20 16:30 Active IV ASDIRECTED bisacodyL [Dulcolax] Med 06/17/20 19:22 Active 5 mg PO DAILY PRN cloNIDine [Catapres] Med 06/17/20 19:22 Active 0.1 mg PO Q8H PRN tiZANidine [Zanaflex] Med 06/17/20 22:00 Active 4 mg PO QID Medication Discontinuation Instructions [OM.PC] Stat Oth 06/17/20 19:22 Ordered Sequential Compression Device [OM.PC] Per Unit Routine Oth 06/17/20 19:22 Ordered Resuscitation Status Routine Resus Stat 06/17/20 18:36 Ordered Medication Orders Acetaminophen (Acetaminophen 325 Mg Tab) 650 mg PO Q4H PRN PRN Reason: Pain (Mild 1-3)/fever Albuterol (Albuterol 0.083% 2.5 Mg/3 Ml Neb Soln) 2.5 mg NEB Q4H PRN PRN Reason: Shortness Of Breath/wheezing Albuterol/Ipratropium (Albuterol/Ipratropium 3.0-0.5 Mg/3 Ml Neb Soln) 3 ml NEB QID PRN PRN Reason: Shortness Of Breath/wheezing Bisacodyl (Bisacodyl 5 Mg Tab) 5 mg PO DAILY PRN PRN Reason: Constipation Clonidine HCl (Clonidine 0.1 Mg Tab) 0.1 mg PO Q8H PRN PRN Reason: Withdrawal Symptoms Docusate Sodium (Docusate Sodium 100 Mg Cap) 100 mg PO BID PRN PRN Reason: Constipation Hydromorphone HCl (Hydromorphone/Normal Saline 15 Mg/30 Ml Chief Radiology) 0 mg IV ASDIRECTED PRN; Protocol PRN Reason: Pain Last Admin: 06/17/20 20:20 Dose: 15 mg Documented by: JING Sodium Chloride (Normal Saline) 1,000 mls @ 150 mls/hr IV ASDIRECTED GREER Last Admin: 06/17/20 16:35 Dose: 150 mls/hr Documented by: PAUL Dextrose/Lactated Ringer's (Dextrose 5%-Lactated Ringers) 1,000 mls @ 125 mls/hr IV ASDIRECTED [facility] Last Admin: 06/17/20 20:24 Dose: 125 mls/hr Documented by: JING Lidocaine (Lidocaine 5% 700 Mg Patch) 700 mg TOP DAILY [facility] Lorazepam (Lorazepam 2 Mg/Ml Sdv) 1 mg IV Q6H PRN PRN Reason: Nausea/Vomiting Mometasone Furoate/Formoterol Fumar (Formoterol/Mometasone 200-5 Mcg 8.8 Gm Inhaler) 2 puff IH BID [facility] Naloxone HCl (Naloxone 0.4 Mg/Ml Sdv) 0.4 mg IVPUSH Q2M PRN PRN Reason: Respiratory Distress Ondansetron HCl (Ondansetron 4 Mg Tab.Dis) 4 mg PO Q6H PRN PRN Reason: Nausea able to take PO Pantoprazole Sodium (Pantoprazole 40 Mg Vial) 40 mg IV Q12H GREER Pantoprazole Sodium (Pantoprazole 40 Mg Vial) 80 mg IVPUSH ONETIME ONE Stop: 06/17/20 21:31 Tizanidine HCl (Tizanidine 4 Mg Tab) 4 mg PO QID [facility] Assessment/Plan Comment:: ASSESSMENT AND PLAN Epigastric Pain- reports for the past 7 days not being able to swallow any solid food with out pain, feels like it sticking to throat and abdomen is very tender. report has only eaten 4 macaroni noodles today. reports has slowly been losing weight for the past two years. Consult with Internal Medicine and Surgery. Dr. Waggoner will do EGD in morning to evaluation these symptoms. -clear liquids then NPO after midnight -IV D5LR at 125ml/hr -medicate for pain- Dilaudid REVIEW NURSE -IV Protonix 80 mg bolus then 40 mg IV daily -EGD in am Chronic back pain. -In lock IV -IV Dilaudid REVIEW NURSE -pulse oximetry Tobacco abuse- smoke as much as possible usually about 1 pack per day -decline patch or gum -monitor for agitation MAINTENANCE ISSUES -DVT prophylaxis; scd -GI prophylaxis; IV Protonix 40 mg daily -[place] catheter; not indicated -Nutrition; clear liquid then NPO after midnight -Nicotine dependence; declines patch or gum CODE STATUS-FULL ADMISSION STATUS-this patient will be admitted to observation status, expect no more than a one night hospital stay for evaluation and management of problems as outlined above. DISPOSITION-anticipate discharge to home after the hospital stay. PRIMARY CARE PROVIDER-Dr. Gomez, [facility] HOSPITALIST- Dr. Armas - Mortality Measure Prognosis:: Good
[2020-06-17] MEDS: tiZANidine 4 MG Tab PO SCH (22:01)
[2020-06-17 22:39] LABS: CORONAVIRUS COVID-19 NAA NEGATIVE (NEGATIVE)
[2020-06-17] MEDS: Mirtazapine 15 MG Tab PO SCH (23:03)
[2020-06-18] MEDS: Albuterol/Ipratropium 3.0-0.5 MG/3 ML Neb Soln NEB PRN ×2 (01:05→08:52)
[2020-06-18] MEDS: Dextrose 5%-Lactated Ringers 1,000 ML IV SCH ×2 (04:35→11:49)
[2020-06-18] MEDS: tiZANidine 4 MG Tab PO SCH ×4 (05:43→23:27)
[2020-06-18] MEDS ORDERED: Propofol 200 MG/20 ML SDV ONE ×2 (06:59→07:26)
[2020-06-18] MEDS ORDERED: fentaNYL 100 MCG/2 ML SDV ONE ×2 (06:59→07:26)
[2020-06-18] MEDS ORDERED: Midazolam 1 MG/ML 2 ML SDV ONE ×2 (06:59→07:26)
[2020-06-18] MEDS ORDERED: Succinylcholine 200 MG/10 ML MDV ONE (07:43)
[2020-06-18] MEDS ORDERED: Neostigmine Methylsulfate 1 MG/ML 5 ML Syringe ONE (07:43)
[2020-06-18] MEDS ORDERED: Dexamethasone 4 MG/ML SDV ONE (07:43)
[2020-06-18] MEDS ORDERED: Glycopyrrolate 0.2 MG/ML 5 ML MDV ONE (07:43)
[2020-06-18] MEDS ORDERED: Rocuronium 50 MG/5 ML Vial ONE (07:43)
[2020-06-18] MEDS ORDERED: Ondansetron 4 MG/2 ML SDV ONE (07:43)
[2020-06-18] MEDS: Formoterol/Mometasone 200-5 MCG 8.8 GM Inhaler IH SCH ×2 (08:17→20:26)
[2020-06-18] MEDS: Lidocaine 5% 700 MG Patch TOP SCH (08:51)
[2020-06-18] MEDS: Pantoprazole 40 MG Vial IV SCH ×2 (08:52→20:35)
--- NOTE | 2020-06-18 11:11 | OR ---
DATE OF PROCEDURE: 06/18/2020 SURGEON: Daniel Felix MD PROCEDURE: Esophagogastroduodenoscopy. FINDINGS: 1. Two plaque-like lesions in the GE junction extending up to 3.5 cm from the junction. 2. No mass effect. COMPLICATIONS: None. ASSEMBLY OPERATOR: None. PREOPERATIVE DIAGNOSIS: Dysphagia. POSTOPERATIVE DIAGNOSIS: Dysphagia. RISKS: Risks, benefits, alternatives, and limitations including, but not limited to infection bleeding, false positives, false negatives, and perforation were explained to the patient and he wished to proceed. PROCEDURE IN DETAIL: The patient was placed in left lateral decubitus position. EGD scope was introduced and advanced atraumatically to the second part of the duodenum. No evidence of duodenitis or ulceration. No abnormalities. Within the stomach itself, there was no gastritis or ulceration. At the GE junction, there was the aforementioned 2 plaque-like lesions. These were not bleeding. These were not consistent with varicosities. They were plaque-like, raised lesions approximately 5 mm in size with a jeter color characteristic to them. These were biopsied multiple times using cold biopsy forceps. The remainder of esophagus was inspected without abnormality. The patient tolerated the procedure well. Daniel Felix MD /[id number]
--- NOTE | 2020-06-18 12:01 | PCM.PN ---
- General Info Date of Service: 06/18/20 Subjective Update: Mr. Norris has been stable since admission last night. He had experienced progressive lower chest and epigastric abdominal pain with eating. It had progressed to the point that he was barely able to get liquids down because of the pain. He was seen and evaluated this morning by Dr. Felix, EGD was performed. This did show evidence of significant esophagitis as well as some plaque formations that were biopsied. He does feel modestly improved from admi ssion. Functional Status: Reports: Ambulating, Urinating - Review of Systems General: Reports: Weakness, Fatigue. Denies: Fever, Chills Pulmonary: Reports: No Symptoms Cardiovascular: Reports: No Symptoms Gastrointestinal: Reports: Abdominal Pain, Difficulty Swallowing. Denies: Diarrhea, Hematochezia, Melena, Nausea, Vomiting - Patient Data Vitals - Most Recent: Last Vital Signs Temp 96.3 F L 06/18/20 10:24 Pulse 77 06/18/20 11:04 Resp 16 06/18/20 11:04 BP 155/97 H 06/18/20 11:04 Pulse Ox 90 L 06/18/20 11:04 Weight - Most Recent: 150 lb 0.005 oz I&O - Last 24 Hours: Intake & Output 06/17/20 06/18/20 06/18/20 22:59 06:59 14:59 Intake Total 240 2728 Balance 240 2728 Lab Results Last 24 Hours: Laboratory Results - last 24 hr 06/17/20 06/17/20 06/17/20 Range/Units 15:19 15:42 15:42 WBC 8.4 (4.5-11.0) K/uL RBC 5.40 (4.30-5.90) M/uL Hgb 15.2 H (12.0-15.0) g/dL Hct 48.0 (40.0-54.0) % MCV 89 (80-98) fL MCH 28 (27-31) pg MCHC 32 (32-36) % Plt Count 288 (150-400) K/uL Neut % (Auto) (36-66) % Lymph % (Auto) (24-44) % Mercer % (Auto) (2-6) % Eos % (Auto) (2-4) % Baso % (Auto) (0-1) % Sodium 135 L (140-148) mmol/L Potassium 4.1 (3.6-5.2) mmol/L Chloride 98 L (100-108) mmol/L Carbon Dioxide 29 (21-32) mmol/L Anion Gap 12.1 (5.0-14.0) mmol/L BUN 7 (7-18) mg/dL Creatinine 0.9 (0.8-1.3) mg/dL Est Cr Clr Drug Dosing 73.50 mL/min Estimated GFR (MDRD) > 60 (>60) Glucose 84 (74-106) mg/dL Calcium 8.9 (8.5-10.1) mg/dL Total Bilirubin (0.2-1.0) mg/dL Direct Bilirubin (0.0-0.2) mg/dL Indirect Bilirubin AST (15-37) U/L ALT (12-78) U/L Alkaline Phosphatase (46-116) U/L C-Reactive Protein (0.0-0.3) mg/dL Total Protein (6.4-8.2) g/dL Albumin (3.4-5.0) g/dL Globulin (2.3-3.5) g/dL Albumin/Globulin Ratio (1.2-2.2) Lipase 31 L (73-393) U/L Influenza Type A RNA (NEGATIVE) RSV RNA (INAAT) (NEGATIVE) Influenza Type B RNA (NEGATIVE) SARS-CoV-2 RNA (JENNY) (NEGATIVE) 06/17/20 06/17/20 06/17/20 Range/Units 16:35 17:41 21:39 WBC (4.5-11.0) K/uL RBC (4.30-5.90) M/uL Hgb (12.0-15.0) g/dL Hct (40.0-54.0) % MCV (80-98) fL MCH (27-31) pg MCHC (32-36) % Plt Count (150-400) K/uL Neut % (Auto) (36-66) % Lymph % (Auto) (24-44) % Mercer % (Auto) (2-6) % Eos % (Auto) (2-4) % Baso % (Auto) (0-1) % Sodium (140-148) mmol/L Potassium (3.6-5.2) mmol/L Chloride (100-108) mmol/L Carbon Dioxide (21-32) mmol/L Anion Gap (5.0-14.0) mmol/L BUN (7-18) mg/dL Creatinine (0.8-1.3) mg/dL Est Cr Clr Drug Dosing mL/min Estimated GFR (MDRD) (>60) Glucose (74-106) mg/dL Calcium (8.5-10.1) mg/dL Total Bilirubin 0.5 D (0.2-1.0) mg/dL Direct Bilirubin 0.16 (0.0-0.2) mg/dL Indirect Bilirubin 0.34 AST 20 (15-37) U/L ALT 27 (12-78) U/L Alkaline Phosphatase 102 (46-116) U/L C-Reactive Protein 0.31 H (0.0-0.3) mg/dL Total Protein 6.5 (6.4-8.2) g/dL Albumin 3.6 (3.4-5.0) g/dL Globulin 2.9 (2.3-3.5) g/dL Albumin/Globulin Ratio 1.2 (1.2-2.2) Lipase (73-393) U/L Influenza Type A RNA Negative (NEGATIVE) RSV RNA (INAAT) Negative (NEGATIVE) Influenza Type B RNA Negative (NEGATIVE) SARS-CoV-2 RNA (JENNY) Negative (NEGATIVE) 06/18/20 06/18/20 Range/Units 05:54 05:54 WBC 6.6 (4.5-11.0) K/uL RBC 5.02 (4.30-5.90) M/uL Hgb 14.2 (12.0-15.0) g/dL Hct 45.3 (40.0-54.0) % MCV 90 (80-98) fL MCH 28 (27-31) pg MCHC 31 L (32-36) % Plt Count 278 (150-400) K/uL Neut % (Auto) 39 (36-66) % Lymph % (Auto) 31 (24-44) % Mercer % (Auto) 13 H (2-6) % Eos % (Auto) 16 H (2-4) % Baso % (Auto) 1 (0-1) % Sodium 141 (140-148) mmol/L Potassium 5.2 (3.6-5.2) mmol/L Chloride 100 (100-108) mmol/L Carbon Dioxide 33 H (21-32) mmol/L Anion Gap 13.2 (5.0-14.0) mmol/L BUN 4 L (7-18) mg/dL Creatinine 0.8 (0.8-1.3) mg/dL Est Cr Clr Drug Dosing 82.69 mL/min Estimated GFR (MDRD) > 60 (>60) Glucose 106 (74-106) mg/dL Calcium 8.8 (8.5-10.1) mg/dL Total Bilirubin (0.2-1.0) mg/dL Direct Bilirubin (0.0-0.2) mg/dL Indirect Bilirubin AST (15-37) U/L ALT (12-78) U/L Alkaline Phosphatase (46-116) U/L C-Reactive Protein (0.0-0.3) mg/dL Total Protein (6.4-8.2) g/dL Albumin (3.4-5.0) g/dL Globulin (2.3-3.5) g/dL Albumin/Globulin Ratio (1.2-2.2) Lipase (73-393) U/L Influenza Type A RNA (NEGATIVE) RSV RNA (INAAT) (NEGATIVE) Influenza Type B RNA (NEGATIVE) SARS-CoV-2 RNA (JENNY) (NEGATIVE) Med Orders - Current: Current Medications Acetaminophen (Acetaminophen 325 Mg Tab) 650 mg PO Q4H PRN PRN Reason: Pain (Mild 1-3)/fever Albuterol (Albuterol 0.083% 2.5 Mg/3 Ml Neb Soln) 2.5 mg NEB Q4H PRN PRN Reason: Shortness Of Breath/wheezing Albuterol/Ipratropium (Albuterol/Ipratropium 3.0-0.5 Mg/3 Ml Neb Soln) 3 ml NEB QID PRN PRN Reason: Shortness Of Breath/wheezing Last Admin: 06/18/20 08:52 Dose: 3 ml Documented by: Bisacodyl (Bisacodyl 5 Mg Tab) 5 mg PO DAILY PRN PRN Reason: Constipation Clonidine HCl (Clonidine 0.1 Mg Tab) 0.1 mg PO Q8H PRN PRN Reason: Withdrawal Symptoms Docusate Sodium (Docusate Sodium 100 Mg Cap) 100 mg PO BID PRN PRN Reason: Constipation Lidocaine (Lidocaine 5% 700 Mg Patch) 700 mg TOP DAILY [facility] Last Admin: 06/18/20 08:51 Dose: 700 mg Documented by: Lorazepam (Lorazepam 2 Mg/Ml Sdv) 1 mg IV Q6H PRN PRN Reason: Nausea/Vomiting Last Admin: 06/18/20 00:43 Dose: 1 mg Documented by: Mirtazapine (Mirtazapine 15 Mg Tab) 15 mg PO BEDTIME [facility] Last Admin: 06/17/20 23:03 Dose: 15 mg Documented by: Mometasone Furoate/Formoterol Fumar (Formoterol/Mometasone 200-5 Mcg 8.8 Gm Inhaler) 2 puff IH BIDRT [facility] Last Admin: 06/18/20 08:17 Dose: 2 puff Documented by: Naloxone HCl (Naloxone 0.4 Mg/Ml Sdv) 0.4 mg IVPUSH Q2M PRN PRN Reason: Respiratory Distress Non-Formulary Medication (Oxycodone [Oxycodone]) 15 mg PO QID [facility] Ondansetron HCl (Ondansetron 4 Mg Tab.Dis) 4 mg PO Q6H PRN PRN Reason: Nausea able to take PO Pantoprazole Sodium (Pantoprazole 40 Mg Vial) 40 mg IV Q12H [facility] Last Admin: 06/18/20 08:52 Dose: 40 mg Documented by: Tizanidine HCl (Tizanidine 4 Mg Tab) 4 mg PO QID [facility] Last Admin: 06/18/20 10:27 Dose: 4 mg Documented by: Discontinued Medications Dexamethasone (Dexamethasone 4 Mg/Ml Sdv) Confirm Administered Dose 4 mg .ROUTE .STK-MED ONE Stop: 06/18/20 07:44 Fentanyl (Fentanyl 100 Mcg/2 Ml Sdv) Confirm Administered Dose 100 mcg .ROUTE .STK-MED ONE Stop: 06/18/20 07:00 Fentanyl (Fentanyl 100 Mcg/2 Ml Sdv) Confirm Administered Dose 100 mcg .ROUTE .STK-MED ONE Stop: 06/18/20 07:27 Glycopyrrolate (Glycopyrrolate 0.2 Mg/Ml 5 Ml Mdv) Confirm Administered Dose 1 mg .ROUTE .STK-MED ONE Stop: 06/18/20 07:44 Hydromorphone HCl (Hydromorphone 0.5 Mg/0.5 Ml Syringe) 0.25 mg IVPUSH ONETIME ONE Stop: 06/17/20 15:22 Last Admin: 06/17/20 16:10 Dose: 0.25 mg Documented by: Hydromorphone HCl (Hydromorphone 0.5 Mg/0.5 Ml Syringe) 0.5 mg IVPUSH ONETIME ONE Stop: 06/17/20 17:03 Last Admin: 06/17/20 17:12 Dose: 0.5 mg Documented by: Hydromorphone HCl (Hydromorphone/Normal Saline 15 Mg/30 Ml Sailor) 0 mg IV ASDIRECTED PRN; Protocol PRN Reason: Pain Last Admin: 06/17/20 20:20 Dose: 15 mg Documented by: Sodium Chloride (Normal Saline) 71 mls @ 3 mls/sec IV ONETIME ONE Stop: 06/17/20 15:27 Last Admin: 06/17/20 16:30 Dose: 3 mls/sec Documented by: Sodium Chloride (Normal Saline) 1,000 mls @ 150 mls/hr IV ASDIRECTED [facility] Last Admin: 06/17/20 16:35 Dose: 150 mls/hr Documented by: Dextrose/Lactated Ringer's (Dextrose 5%-Lactated Ringers) 1,000 mls @ 125 mls/hr IV ASDIRECTED [facility] Last Admin: 06/18/20 11:49 Dose: 125 mls/hr Documented by: Iopamidol (Iopamidol 612 Mg/Ml 100 Ml Bottle) 100 ml IV . DIRECTED PRN PRN Reason: RADIOLOGY EXAM Last Admin: 06/17/20 16:31 Dose: 100 ml Documented by: Midazolam HCl (Midazolam 1 Mg/Ml 2 Ml Sdv) Confirm Administered Dose 2 mg .ROUTE .STK-MED ONE Stop: 06/18/20 07:00 Midazolam HCl (Midazolam 1 Mg/Ml 2 Ml Sdv) Confirm Administered Dose 2 mg .ROUTE .STK-MED ONE Stop: 06/18/20 07:27 Mometasone Furoate/Formoterol Fumar (Formoterol/Mometasone 200-5 Mcg 8.8 Gm Inhaler) 2 puff IH BID [facility] Last Admin: 06/17/20 23:04 Dose: Not Given Documented by: Neostigmine Methylsulfate (Neostigmine Methylsulfate 1 Mg/Ml 5 Ml Syringe) Confi rm Administered Dose 5 mg .ROUTE .STK-MED ONE Stop: 06/18/20 07:44 Ondansetron HCl (Ondansetron 4 Mg/2 Ml Sdv) Confirm Administered Dose 4 mg .ROUTE .STK-MED ONE Stop: 06/18/20 07:44 Pantoprazole Sodium (Pantoprazole 40 Mg Vial) 80 mg IVPUSH ONETIME ONE Stop: 06/17/20 21:31 Last Admin: 06/17/20 21:50 Dose: 80 mg Documented by: Propofol (Propofol 200 Mg/20 Ml Sdv) Confirm Administered Dose 200 mg .ROUTE .STK-MED ONE Stop: 06/18/20 07:00 Propofol (Propofol 200 Mg/20 Ml Sdv) Confirm Administered Dose 200 mg .ROUTE .STK-MED ONE Stop: 06/18/20 07:27 Rocuronium [place] (Rocuronium 50 Mg/5 Ml Vial) Confirm Administered Dose 50 mg .ROUTE .STK-MED ONE Stop: 06/18/20 07:44 Sodium Chloride (Sodium Chloride 0.9% 10 Ml Syringe) 10 ml FLUSH ASDIRECTED PRN PRN Reason: Keep Vein Open Last Admin: 06/17/20 16:10 Dose: 10 ml Documented by: Sodium Chloride (Sodium Chloride 0.9% 10 Ml Syringe) 10 ml FLUSH ONETIME PRN PRN Reason: PER RADIOLOGY PROTOCOL Last Admin: 06/17/20 16:30 Dose: 10 ml Documented by: Succinylcholine Chloride (Succinylcholine 200 Mg/10 Ml Mdv) Confirm Administered Dose 200 mg .ROUTE .STK-MED ONE Stop: 06/18/20 07:44 - Exam Quality Assessment: DVT Prophylaxis General: Alert, Oriented, Cooperative, Moderate Distress Lungs: Clear to Auscultation, Normal Respiratory Effort, Decreased Breath Sounds Cardiovascular: Regular Rate, Regular Rhythm, No Murmurs GI/Abdominal Exam: Soft, No Organomegaly, Tender. No: Distended, Guarding, Rigid, Rebound Extremities: Non-Tender, No Pedal Edema - Patient Data Lab Results Last 24 hrs: Laboratory Results - last 24 hr 06/17/20 06/17/20 06/17/20 Range/Units 15:19 15:42 15:42 WBC 8.4 (4.5-11.0) K/uL RBC 5.40 (4.30-5.90) M/uL Hgb 15.2 H (12.0-15.0) g/dL Hct 48.0 (40.0-54.0) % MCV 89 (80-98) fL MCH 28 (27-31) pg MCHC 32 (32-36) % Plt Count 288 (150-400) K/uL Neut % (Auto) (36-66) % Lymph % (Auto) (24-44) % Mercer % (Auto) (2-6) % Eos % (Auto) (2-4) % Baso % (Auto) (0-1) % Sodium 135 L (140-148) mmol/L Potassium 4.1 (3.6-5.2) mmol/L Chloride 98 L (100-108) mmol/L Carbon Dioxide 29 (21-32) mmol/L Anion Gap 12.1 (5.0-14.0) mmol/L BUN 7 (7-18) mg/dL Creatinine 0.9 (0.8-1.3) mg/dL Est Cr Clr Drug Dosing 73.50 mL/min Estimated GFR (MDRD) > 60 (>60) Glucose 84 (74-106) mg/dL Calcium 8.9 (8.5-10.1) mg/dL Total Bilirubin (0.2-1.0) mg/dL Direct Bilirubin (0.0-0.2) mg/dL Indirect Bilirubin AST (15-37) U/L ALT (12-78) U/L Alkaline Phosphatase (46-116) U/L C-Reactive Protein (0.0-0.3) mg/dL Total Protein (6.4-8.2) g/dL Albumin (3.4-5.0) g/dL Globulin (2.3-3.5) g/dL Albumin/Globulin Ratio (1.2-2.2) Lipase 31 L (73-393) U/L Influenza Type A RNA (NEGATIVE) RSV RNA (INAAT) (NEGATIVE) Influenza Type B RNA (NEGATIVE) SARS-CoV-2 RNA (JENNY) (NEGATIVE) 06/17/20 06/17/20 06/17/20 Range/Units 16:35 17:41 21:39 WBC (4.5-11.0) K/uL RBC (4.30-5.90) M/uL Hgb (12.0-15.0) g/dL Hct (40.0-54.0) % MCV (80-98) fL MCH (27-31) pg MCHC (32-36) % Plt Count (150-400) K/uL Neut % (Auto) (36-66) % Lymph % (Auto) (24-44) % Mercer % (Auto) (2-6) % Eos % (Auto) (2-4) % Baso % (Auto) (0-1) % Sodium (140-148) mmol/L Potassium (3.6-5.2) mmol/L Chloride (100-108) mmol/L Carbon Dioxide (21-32) mmol/L Anion Gap (5.0-14.0) mmol/L BUN (7-18) mg/dL Creatinine (0.8-1.3) mg/dL Est Cr Clr Drug Dosing mL/min Estimated GFR (MDRD) (>60) Glucose (74-106) mg/dL Calcium (8.5-10.1) mg/dL Total Bilirubin 0.5 D (0.2-1.0) mg/dL Direct Bilirubin 0.16 (0.0-0.2) mg/dL Indirect Bilirubin 0.34 AST 20 (15-37) U/L ALT 27 (12-78) U/L Alkaline Phosphatase 102 (46-116) U/L C-Reactive Protein 0.31 H (0.0-0.3) mg/dL Total Protein 6.5 (6.4-8.2) g/dL Albumin 3.6 (3.4-5.0) g/dL Globulin 2.9 (2.3-3.5) g/dL Albumin/Globulin Ratio 1.2 (1.2-2.2) Lipase (73-393) U/L Influenza Type A RNA Negative (NEGATIVE) RSV RNA (INAAT) Negative (NEGATIVE) Influenza Type B RNA Negative (NEGATIVE) SARS-CoV-2 RNA (JENNY) Negative (NEGATIVE) 06/18/20 06/18/20 Range/Units 05:54 05:54 WBC 6.6 (4.5-11.0) K/uL RBC 5.02 (4.30-5.90) M/uL Hgb 14.2 (12.0-15.0) g/dL Hct 45.3 (40.0-54.0) % MCV 90 (80-98) fL MCH 28 (27-31) pg MCHC 31 L (32-36) % Plt Count 278 (150-400) K/uL Neut % (Auto) 39 (36-66) % Lymph % (Auto) 31 (24-44) % Mercer % (Auto) 13 H (2-6) % Eos % (Auto) 16 H (2-4) % Baso % (Auto) 1 (0-1) % Sodium 141 (140-148) mmol/L Potassium 5.2 (3.6-5.2) mmol/L Chloride 100 (100-108) mmol/L Carbon Dioxide 33 H (21-32) mmol/L Anion Gap 13.2 (5.0-14.0) mmol/L BUN 4 L (7-18) mg/dL Creatinine 0.8 (0.8-1.3) mg/dL Est Cr Clr Drug Dosing 82.69 mL/min Estimated GFR (MDRD) > 60 (>60) Glucose 106 (74-106) mg/dL Calcium 8.8 (8.5-10.1) mg/dL Total Bilirubin (0.2-1.0) mg/dL Direct Bilirubin (0.0-0.2) mg/dL Indirect Bilirubin AST (15-37) U/L ALT (12-78) U/L Alkaline Phosphatase (46-116) U/L C-Reactive Protein (0.0-0.3) mg/dL Total Protein (6.4-8.2) g/dL Albumin (3.4-5.0) g/dL Globulin (2.3-3.5) g/dL Albumin/Globulin Ratio (1.2-2.2) Lipase (73-393) U/L Influenza Type A RNA (NEGATIVE) RSV RNA (INAAT) (NEGATIVE) Influenza Type B RNA (NEGATIVE) SARS-CoV-2 RNA (JENNY) (NEGATIVE) Result Diagrams: 06/18/20 05:54 06/18/20 05:54 Sepsis Event Note - Evaluation Sepsis Screening Result: No Definite Risk - Focused Exam Vital Signs: Vital Signs Temp Pulse Resp BP Pulse Ox 06/18/20 11:04 77 16 155/97 H 90 L 03/18/21 10:45 75 16 157/96 H 90 L 06/18/20 10:30 70 16 156/98 H 88 L 06/18/20 10:24 96.3 F L 77 16 143/97 H 90 L 06/18/20 10:10 96.6 F L 77 15 156/96 H 93 L 06/18/20 10:05 79 15 151/95 H 89 L 06/18/20 10:00 82 15 147/97 H 95 06/18/20 09:55 78 15 150/98 H 96 06/18/20 09:50 96.4 F L 78 15 142/91 H 95 06/18/20 07:52 93 L 06/18/20 07:28 95.4 F L 74 18 144/83 H 93 L 06/18/20 04:55 95.1 F L 74 16 138/79 94 L 06/18/20 01:34 96 - Problem List Review Problem List Initiated/Reviewed/Updated: Yes - My Orders Last 24 Hours: My Active Orders 06/18/20 11:53 oxyCODONE [oxyCODONE] 15 mg PO QID 06/18/20 11:55 Discontinue Telemetry Monitoring [Cardiac Monitoring Discontinue] [RC] Click to Edit Convert IV to Saline Lock [OM.PC] Routine 06/18/20 Lunch Full Liquid Diet [DIET] - Plan Plan:: ASSESSMENT AND PLAN Esophagitis- pain with swallowing, progressed to the point that he was having difficulty getting liquids in. EGD performed this morning by Dr. Felix shows evidence of esophagitis, biopsies were obtained and are pending at this time -Full liquid diet -Saline lock -Resume outpatient pain medications -IV Protonix 80 mg bolus then 40 mg IV twice daily Chronic back pain. -Resume oral pain medications -pulse oximetry Tobacco abuse- smoke as much as possible usually about 1 pack per day -decline patch or gum -monitor for agitation MAINTENANCE ISSUES -DVT prophylaxis; scd -GI prophylaxis; IV Protonix 40 mg daily -[place] catheter; not indicated -Nutrition; clear liquid then NPO after midnight -Nicotine dependence; declines patch or gum CODE STATUS-FULL ADMISSION STATUS-this patient will be admitted to observation status, expect no more than a one night hospital stay for evaluation and management of problems as outlined above. DISPOSITION-anticipate discharge to home after the hospital stay. PRIMARY CARE PROVIDER-Dr. Gomez, [facility] HOSPITALIST- Dr. Armas
[2020-06-18] MEDS: oxyCODONE 5 MG Tab PO SCH ×3 (12:09→23:27)
[2020-06-18] MEDS: Mirtazapine 15 MG Tab PO SCH (20:35)
[2020-06-19] MEDS: tiZANidine 4 MG Tab PO SCH ×4 (05:48→21:37)
[2020-06-19] MEDS: oxyCODONE 5 MG Tab PO SCH ×4 (05:48→23:19)
[2020-06-19] MEDS: Formoterol/Mometasone 200-5 MCG 8.8 GM Inhaler IH SCH ×2 (07:12→20:23)
[2020-06-19] MEDS: Lidocaine 5% 700 MG Patch TOP SCH (11:07)
[2020-06-19] MEDS: Diazepam 2 MG Tab PO PRN ×2 (12:54→20:27)
--- NOTE | 2020-06-19 14:06 | PCM.PN ---
- General Info Date of Service: 06/19/20 Subjective Update: Mr. Norris continues to experience epigastric abdominal pain and difficulty with eating specifically swallowing. Symptoms have improved since admission but he remains fairly compromised. He is now able to swallow liquids fairly easily but has ongoing difficulty with more solid food. Overall level of pain has decreased and there is less abdominal tenderness. Functional Status: Reports: Ambulating, Urinating. Denies: Tolerating Diet - Review of Systems General: Reports: Weakness, Fatigue. Denies: Fever, Chills Pulmonary: Reports: No Symptoms Cardiovascular: Reports: No Symptoms Gastrointestinal: Reports: Abdominal Pain, Difficulty Swallowing. Denies: Diarrhea, Hematochezia, Melena, Nausea, Vomiting Genitourinary: Reports: No Symptoms - Patient Data Vitals - Most Recent: Last Vital Signs Temp 97.1 F 06/19/20 10:48 Pulse 86 06/19/20 10:48 Resp 16 06/19/20 10:48 BP 149/89 H 06/19/20 10:48 Pulse Ox 96 06/19/20 10:48 Weight - Most Recent: 150 lb 0.005 oz I&O - Last 24 Hours: Intake & Output 06/18/20 06/19/20 06/19/20 22:59 06:59 14:59 Intake Total 4032 989 4304 Output Total 2000 1850 1900 Balance -920 -1550 -580 Med Orders - Current: Current Medications Acetaminophen (Acetaminophen 325 Mg Tab) 650 mg PO Q4H PRN PRN Reason: Pain (Mild 1-3)/fever Albuterol (Albuterol 0.083% 2.5 Mg/3 Ml Neb Soln) 2.5 mg NEB Q4H PRN PRN Reason: Shortness Of Breath/wheezing Albuterol/Ipratropium (Albuterol/Ipratropium 3.0-0.5 Mg/3 Ml Neb Soln) 3 ml NEB QID PRN PRN Reason: Shortness Of Breath/wheezing Last Admin: 06/18/20 08:52 Dose: 3 ml Documented by: Bisacodyl (Bisacodyl 5 Mg Tab) 5 mg PO DAILY PRN PRN Reason: Constipation Clonidine HCl (Clonidine 0.1 Mg Tab) 0.1 mg PO Q8H PRN PRN Reason: Withdrawal Symptoms Diazepam (Diazepam 2 Mg Tab) 2 mg PO Q6H PRN PRN Reason: Anxiety Last Admin: 06/19/20 12:54 Dose: 2 mg Documented by: Docusate Sodium (Docusate Sodium 100 Mg Cap) 100 mg PO BID PRN PRN Reason: Constipation Lidocaine (Lidocaine 5% 700 Mg Patch) 700 mg TOP DAILY [facility] Last Admin: 06/19/20 11:07 Dose: 700 mg Documented by: Mirtazapine (Mirtazapine 15 Mg Tab) 15 mg PO BEDTIME [facility] Last Admin: 06/18/20 20:35 Dose: 15 mg Documented by: Miscellaneous Information (Remove Lidocaine Patch) 1 ea TRDERM BEDTIME [facility] Mometasone Furoate/Formoterol Fumar (Formoterol/Mometasone 200-5 Mcg 8.8 Gm Inh aler) 2 puff IH BIDRT [facility] Last Admin: 06/19/20 07:12 Dose: 2 puff Documented by: Ondansetron HCl (Ondansetron 4 Mg Tab.Dis) 4 mg PO Q6H PRN PRN Reason: Nausea able to take PO Oxycodone HCl (Oxycodone 5 Mg Tab) 15 mg PO Q6H [facility] Last Admin: 06/19/20 11:59 Dose: 15 mg Documented by: Pantoprazole Sodium (Pantoprazole 40 Mg Tab.Cr) 40 mg PO BIDAC [facility] Tizanidine HCl (Tizanidine 4 Mg Tab) 4 mg PO QID [facility] Last Admin: 06/19/20 09:00 Dose: 4 mg Documented by: Discontinued Medications Dexamethasone (Dexamethasone 4 Mg/Ml Sdv) Confirm Administered Dose 4 mg .ROUTE .STK-MED ONE Stop: 06/18/20 07:44 Fentanyl (Fentanyl 100 Mcg/2 Ml Sdv) Confirm Administered Dose 100 mcg .ROUTE .STK-MED ONE Stop: 06/18/20 07:00 Fentanyl (Fentanyl 100 Mcg/2 Ml Sdv) Confirm Administered Dose 100 mcg .ROUTE .STK-MED ONE Stop: 06/18/20 07:27 Glycopyrrolate (Glycopyrrolate 0.2 Mg/Ml 5 Ml Mdv) Confirm Administered Dose 1 mg .ROUTE .STK-MED ONE Stop: 06/18/20 07:44 Hydromorphone HCl (Hydromorphone 0.5 Mg/0.5 Ml Syringe) 0.25 mg IVPUSH ONETIME ONE Stop: 06/17/20 15:22 Last Admin: 06/17/20 16:10 Dose: 0.25 mg Documented by: Hydromorphone HCl (Hydromorphone 0.5 Mg/0.5 Ml Syringe) 0.5 mg IVPUSH ONETIME ONE Stop: 06/17/20 17:03 Last Admin: 06/17/20 17:12 Dose: 0.5 mg Documented by: Hydromorphone HCl (Hydromorphone/Normal Saline 15 Mg/30 Ml Nurse Liaison) 0 mg IV ASDIRECTED PRN; Protocol PRN Reason: Pain Last Admin: 06/17/20 20:20 Dose: 15 mg Documented by: Sodium Chloride (Normal Saline) 71 mls @ 3 mls/sec IV ONETIME ONE Stop: 06/17/20 15:27 Last Admin: 06/17/20 16:30 Dose: 3 mls/sec Documented by: Sodium Chloride (Normal Saline) 1,000 mls @ 150 mls/hr IV ASDIRECTED [facility] Last Admin: 06/17/20 16:35 Dose: 150 mls/hr Documented by: Dextrose/Lactated Ringer's (Dextrose 5%-Lactated Ringers) 1,000 mls @ 125 mls/hr IV ASDIRECTED [facility] Last Admin: 06/18/20 11:49 Dose: 125 mls/hr Documented by: Iopamidol (Iopamidol 612 Mg/Ml 100 Ml Bottle) 100 ml IV . DIRECTED PRN PRN Reason: RADIOLOGY EXAM Last Admin: 06/17/20 16:31 Dose: 100 ml Documented by: Lorazepam (Lorazepam 2 Mg/Ml Sdv) 1 mg IV Q6H PRN PRN Reason: Nausea/Vomiting Last Admin: 06/18/20 00:43 Dose: 1 mg Documented by: Midazolam HCl (Midazolam 1 Mg/Ml 2 Ml Sdv) Confirm Administered Dose 2 mg .ROUTE .STK-MED ONE Stop: 06/18/20 07:00 Midazolam HCl (Midazolam 1 Mg/Ml 2 Ml Sdv) Confirm Administered Dose 2 mg .ROUTE .STK-MED ONE Stop: 06/18/20 07:27 Mometasone Furoate/Formoterol Fumar (Formoterol/Mometasone 200-5 Mcg 8.8 Gm Inhaler) 2 puff IH BID [facility] Last Admin: 06/17/20 23:04 Dose: Not Given Documented by: Naloxone HCl (Naloxone 0.4 Mg/Ml Sdv) 0.4 mg IVPUSH Q2M PRN PRN Reason: Respiratory Distress Neostigmine Methylsulfate (Neostigmine Methylsulfate 1 Mg/Ml 5 Ml Syringe) Confirm Administered Dose 5 mg .ROUTE .STK-MED ONE Stop: 06/18/20 07:44 Ondansetron HCl (Ondansetron 4 Mg/2 Ml Sdv) Confirm Administered Dose 4 mg .ROUTE .STK-MED ONE Stop: 06/18/20 07:44 Pantoprazole Sodium (Pantoprazole 40 Mg Vial) 40 mg IV Q12H [facility] Last Admin: 06/18/20 20:35 Dose: 40 mg Documented by: Pantoprazole Sodium (Pantoprazole 40 Mg Vial) 80 mg IVPUSH ONETIME ONE Stop: 06/17/20 21:31 Last Admin: 06/17/20 21:50 Dose: 80 mg Documented by: Propofol (Propofol 200 Mg/20 Ml Sdv) Confirm Administered Dose 200 mg .ROUTE .STK-MED ONE Stop: 06/18/20 07:00 Propofol (Propofol 200 Mg/20 Ml Sdv) Confirm Administered Dose 200 mg .ROUTE .STK-MED ONE Stop: 06/18/20 07:27 Rocuronium [place] (Rocuronium 50 Mg/5 Ml Vial) Confirm Administered Dose 50 mg .ROUTE .STK-MED ONE Stop: 06/18/20 07:44 Sodium Chloride (Sodium Chloride 0.9% 10 Ml Syringe) 10 ml FLUSH ASDIRECTED PRN PRN Reason: Keep Vein Open Last Admin: 06/17/20 16:10 Dose: 10 ml Documented by: Sodium Chloride (Sodium Chloride 0.9% 10 Ml Syringe) 10 ml FLUSH ONETIME PRN PRN Reason: PER RADIOLOGY PROTOCOL Last Admin: 06/17/20 16:30 Dose: 10 ml Documented by: Succinylcholine Chloride (Succinylcholine 200 Mg/10 Ml Mdv) Confirm Administered Dose 200 mg .ROUTE .STK-MED ONE Stop: 06/18/20 07:44 - Exam Quality Assessment: DVT Prophylaxis General: Alert, Oriented, Cooperative, Moderate Distress Lungs: Clear to Auscultation, Normal Respiratory Effort Cardiovascular: Regular Rate, Regular Rhythm, No Murmurs GI/Abdominal Exam: Soft, No Organomegaly, Tender. No: Distended, Guarding, Rigid, Rebound Extremities: Non-Tender, No Pedal Edema - Patient Data Result Diagrams: 06/18/20 05:54 06/18/20 05:54 Sepsis Event Note - Evaluation Sepsis Screening Result: No Definite Risk - Focused Exam Vital Signs: Vital Signs Temp Temp Pulse Resp BP Pulse Ox 06/19/20 10:48 97.1 F 86 16 149/89 H 96 06/19/20 07:18 97.6 F 75 16 142/85 H 93 L 06/19/20 07:00 93 L 06/19/20 05:00 97.2 F 77 18 118/77 90 L - Problem List Review Problem List Initiated/Reviewed/Updated: Yes - My Orders Last 24 Hours: My Active Orders 06/19/20 12:37 diazePAM [Valium] 2 mg PO Q6H PRN 06/19/20 16:30 Pantoprazole [ProTONIX] 40 mg PO BIDAC - Plan Plan:: ASSESSMENT AND PLAN Esophagitis-some improvement over the last 24 hours, tolerating liquids better, continues to have difficulty with more solid food. -Soft low residue diet -Saline lock -Resume outpatient pain medications -Protonix 40 mg p.o. twice daily Chronic back pain. -Resume oral pain medications -pulse oximetry Tobacco abuse- smoke as much as possible usually about 1 pack per day -decline patch or gum -monitor for agitation MAINTENANCE ISSUES -DVT prophylaxis; scd -GI prophylaxis; IV Protonix 40 mg daily -[place] catheter; not indicated -Nutrition; clear liquid then NPO after midnight -Nicotine dependence; declines patch or gum CODE STATUS-FULL ADMISSION STATUS-this patient will be admitted to observation status, expect no more than a one night hospital stay for evaluation and management of problems as outlined above. DISPOSITION-anticipate discharge to home after the hospital stay. PRIMARY CARE PROVIDER-Dr. Gomez, [facility] HOSPITALIST- Dr. Armas
[2020-06-19] MEDS: Pantoprazole 40 MG Tab.CR PO SCH (17:11)
[2020-06-19] MEDS: Mirtazapine 15 MG Tab PO SCH (20:23)
[2020-06-20] MEDS: tiZANidine 4 MG Tab PO SCH ×2 (05:41→09:33)
[2020-06-20] MEDS: oxyCODONE 5 MG Tab PO SCH ×2 (05:41→11:04)
[2020-06-20] MEDS: Formoterol/Mometasone 200-5 MCG 8.8 GM Inhaler IH SCH (07:37)
[2020-06-20 08:07] VITALS: BP 118/68; PULSE 95
[2020-06-20] MEDS: Pantoprazole 40 MG Tab.CR PO SCH (08:12)
[2020-06-20] MEDS: Lidocaine 5% 700 MG Patch TOP SCH (09:33)
--- NOTE | 2020-06-20 09:52 | PCM.DCSUM1 ---
Discharge Summary - Hospital Course Brief History: Mr. Norris is a 69-year-old gentleman who was admitted through the emergency department with a 1 week history of epigastric abdominal pain and progressive difficulty with swallowing. - Discharge Data Discharge Date: 06/20/20 Discharge Disposition: Home, Self-Care 01 Condition: Fair - Referral to Home Health Primary Care Physician: Huey Ching MD - Discharge Diagnosis/Problem(s) (1) Esophagitis SNOMED Code(s): 30872138 ICD Code: K20.90 - ESOPHAGITIS, UNSPECIFIED WITHOUT BLEEDING Status: Acute Current Visit: Yes (2) Chronic back pain greater than 3 months duration SNOMED Code(s): 528756285666 ICD Code: M54.9 - DORSALGIA, UNSPECIFIED; G89.29 - OTHER CHRONIC PAIN Status: Acute Priority: High Current Visit: Yes (3) Tobacco abuse SNOMED Code(s): 318802441 ICD Code: Z72.0 - TOBACCO USE Status: Acute Priority: High Current Visit: Yes (4) Dysphagia SNOMED Code(s): 93301087, 457559755 ICD Code: R13.10 - DYSPHAGIA, UNSPECIFIED Status: Acute Current Visit: Yes (5) Epigastric pain SNOMED Code(s): 99610187 ICD Code: R10.13 - EPIGASTRIC PAIN Status: Acute Priority: High Current Visit: Yes - Patient Summary/Data Consults: Consultations 06/17/20 19:22 Consult to Physician [CONS] Routine Consulting Provider: Frankie Waggoner Courtesy Call Completed to Consulting Physician: Yes Reason for Consult: EGD in am Person Notified: Edilson Piper Date Notified: 06/17/20 Time Notified: 17:50 Hospital Course: Mr. Norris is a 69-year-old gentleman who was admitted through the emergency department with a 1 week history of epigastric abdominal pain and progressive difficulty with dysphagia. Symptoms had progressed to the point where he was even having significant pain with liquids. Evaluation in the emergency department was unremarkable. He was admitted to the hospital given IV fluids for hydration, pain medication, and medication for nausea as needed. He was also started on IV Protonix 40 mg twice daily. Following morning he was seen and evaluated by Dr. Felix for surgical consult. EGD was performed which did show severe esophagitis and plaque formation in the esophagus consistent with Rogers's esophagus. Biopsies were performed but were still pending at the time of discharge. He gradually improved during hospitalization and was able to tolerate soft foods by the time of discharge. Epigastric pain had not yet totally resolved but had improved significantly. Activity will be as tolerated and he will remain on a soft diet. He will continue oral Protonix twice daily for 2 weeks and then once daily thereafter. Follow-up appointment will be scheduled with his primary care provider within 1 week. He was given written information concerning esophagitis and acid-based foods that should be avoided. - Patient Instructions Diet: GI Soft/Low Residue/Low Fiber Activity: As Tolerated Other/Special Instructions: Please schedule follow-up appointment with Dr. Ching within 1 week. - Discharge Plan *PRESCRIPTION DRUG MONITORING PROGRAM REVIEWED*: Not Applicable *COPY OF PRESCRIPTION DRUG MONITORING REPORT IN PATIENT [place]URT[place]: Not Applicable Prescriptions/Med Rec: Pantoprazole [ProTONIX] 40 mg PO BIDAC #30 tab.cr Home Medications: Home Meds Simvastatin [Zocor] 40 mg PO BEDTIME 02/23/13 [History] Ondansetron [Zofran] 4 mg PO Q4H PRN 08/23/14 [History] Rizatriptan [Maxalt] 10 mg PO ASDIRECTED PRN 08/23/14 [History] Albuterol [Proair HFA] 2 spray INH Q6H 09/01/15 [History] Fluticasone Propion/Salmeterol [Advair 250-50 Diskus] 1 puff INH ASDIRECTED PRN 09/01/15 [History] oxyCODONE 15 mg PO QID 09/01/15 [History] Betamethasone Dipropionate [Diprolene AF 0.05% Crm] 1 applic TOP BID 05/30/19 [History] Budesonide/Formoterol Fumarate [Symbicort 160-4.5 Mcg Inhaler] 2 puff IH BID 05/30/19 [History] DULoxetine [Cymbalta] 20 mg PO DAILY 05/30/19 [History] EPINEPHrine [Epipen] 0.3 mg IM ASDIRECTED PRN 05/30/19 [History] Lidocaine 5% [Lidoderm 5%] 1 patch TOP DAILY 05/30/19 [History] Mirtazapine [Remeron] 15 mg PO BEDTIME 05/30/19 [History] Naloxone HCl [Narcan] 4 mg NS ASDIRECTED PRN 05/30/19 [History] Triamcinolone Acetonide [Triamcinolone Acetonide 0.1% Crm] 1 applic TOP ASDIRECTED 05/30/19 [History] cloNIDine [Catapres] 0.1 mg PO Q8H PRN 05/30/19 [History] raNITIdine HCL [Zantac] 150 mg PO BID PRN 05/30/19 [History] tiZANidine [Zanaflex] 4 mg PO QID 05/30/19 [History] Pantoprazole [ProTONIX] 40 mg PO BIDAC #30 tab.cr 06/20/20 [Rx] Patient Handouts: Esophagitis Referrals: Huey Ching MD [Primary Care Provider] - 06/26/20 2:00 pm - Discharge Summary/Plan Comment DC Time >30 min.: No - Patient Data Vitals - Most Recent: Last Vital Signs Temp 96.2 F L 06/20/20 07:00 Pulse 95 06/20/20 08:08 Resp 18 06/20/20 08:08 BP 118/68 06/20/20 07:00 Pulse Ox 90 L 06/20/20 08:08 Weight - Most Recent: 150 lb 0.005 oz I&O - Last 24 hours: Intake & Output 06/19/20 06/20/20 06/20/20 22:59 06:59 14:59 Intake Total 1200 Output Total 1700 1600 Balance -500 -1600 Med Orders - Current: Current Medications Acetaminophen (Acetaminophen 325 Mg Tab) 650 mg PO Q4H PRN PRN Reason: Pain (Mild 1-3)/fever Albuterol (Albuterol 0.083% 2.5 Mg/3 Ml Neb Soln) 2.5 mg NEB Q4H PRN PRN Reason: Shortness Of Breath/wheezing Albuterol/Ipratropium (Albuterol/Ipratropium 3.0-0.5 Mg/3 Ml Neb Soln) 3 ml NEB QID PRN PRN Reason: Shortness Of Breath/wheezing Last Admin: 06/18/20 08:52 Dose: 3 ml Documented by: Bisacodyl (Bisacodyl 5 Mg Tab) 5 mg PO DAILY PRN PRN Reason: Constipation Clonidine HCl (Clonidine 0.1 Mg Tab) 0.1 mg PO Q8H PRN PRN Reason: Withdrawal Symptoms Diazepam (Diazepam 2 Mg Tab) 2 mg PO Q6H PRN PRN Reason: Anxiety Last Admin: 06/19/20 20:27 Dose: 2 mg Documented by: Docusate Sodium (Docusate Sodium 100 Mg Cap) 100 mg PO BID PRN PRN Reason: Constipation Lidocaine (Lidocaine 5% 700 Mg Patch) 700 mg TOP DAILY [facility] Last Admin: 06/20/20 09:33 Dose: 700 mg Documented by: Mirtazapine (Mirtazapine 15 Mg Tab) 15 mg PO BEDTIME [facility] Last Admin: 06/19/20 20:23 Dose: 15 mg Documented by: Miscellaneous Information (Remove Lidocaine Patch) 1 ea TRDERM BEDTIME [facility] Last Admin: 06/19/20 20:25 Dose: 1 ea Documented by: Mometasone Furoate/Formoterol Fumar (Formoterol/Mometasone 200-5 Mcg 8.8 Gm Inhaler) 2 puff IH BIDRT [facility] Last Admin: 06/20/20 07:37 Dose: 2 puff Documented by: Ondansetron HCl (Ondansetron 4 Mg Tab.Dis) 4 mg PO Q6H PRN PRN Reason: Nausea able to take PO Oxycodone HCl (Oxycodone 5 Mg Tab) 15 mg PO Q6H [facility] Last Admin: 06/20/20 05:41 Dose: 15 mg Documented by: Pantoprazole Sodium (Pantoprazole 40 Mg Tab.Cr) 40 mg PO BIDAC [facility] Last Admin: 06/20/20 08:12 Dose: 40 mg Documented by: Tizanidine HCl (Tizanidine 4 Mg Tab) 4 mg PO QID [facility] Last Admin: 06/20/20 09:33 Dose: 4 mg Documented by: Discontinued Medications Dexamethasone (Dexamethasone 4 Mg/Ml Sdv) Confirm Administered Dose 4 mg .ROUTE .STK-MED ONE Stop: 06/18/20 07:44 Fentanyl (Fentanyl 100 Mcg/2 Ml Sdv) Confirm Administered Dose 100 mcg .ROUTE .STK-MED ONE Stop: 06/18/20 07:00 Fentanyl (Fentanyl 100 Mcg/2 Ml Sdv) Confirm Administered Dose 100 mcg .ROUTE .STK-MED ONE Stop: 06/18/20 07:27 Glycopyrrolate (Glycopyrrolate 0.2 Mg/Ml 5 Ml Mdv) Confirm Administered Dose 1 mg .ROUTE .STK-MED ONE Stop: 06/18/20 07:44 Hydromorphone HCl (Hydromorphone 0.5 Mg/0.5 Ml Syringe) 0.25 mg IVPUSH ONETIME ONE Stop: 06/17/20 15:22 Last Admin: 06/17/20 16:10 Dose: 0.25 mg Documented by: Hydromorphone HCl (Hydromorphone 0.5 Mg/0.5 Ml Syringe) 0.5 mg IVPUSH ONETIME ONE Stop: 06/17/20 17:03 Last Admin: 06/17/20 17:12 Dose: 0.5 mg Documented by: Hydromorphone HCl (Hydromorphone/Normal Saline 15 Mg/30 Ml Brusher Machine) 0 mg IV ASDIRECTED PRN; Protocol PRN Reason: Pain Last Admin: 06/17/20 20:20 Dose: 15 mg Documented by: Sodium Chloride (Normal Saline) 71 mls @ 3 mls/sec IV ONETIME ONE Stop: 06/17/20 15:27 Last Admin: 06/17/20 16:30 Dose: 3 mls/sec Documented by: Sodium Chloride (Normal Saline) 1,000 mls @ 150 mls/hr IV ASDIRECTED [facility] Last Admin: 06/17/20 16:35 Dose: 150 mls/hr Documented by: Dextrose/Lactated Ringer's (Dextrose 5%-Lactated Ringers) 1,000 mls @ 125 mls/hr IV ASDIRECTED [facility] Last Admin: 06/18/20 11:49 Dose: 125 mls/hr Documented by: Iopamidol (Iopamidol 612 Mg/Ml 100 Ml Bottle) 100 ml IV . DIRECTED PRN PRN Reason: RADIOLOGY EXAM Last Admin: 06/17/20 16:31 Dose: 100 ml Documented by: Lorazepam (Lorazepam 2 Mg/Ml Sdv) 1 mg IV Q6H PRN PRN Reason: Nausea/Vomiting Last Admin: 06/18/20 00:43 Dose: 1 mg Documented by: Midazolam HCl (Midazolam 1 Mg/Ml 2 Ml Sdv) Confirm Administered Dose 2 mg .ROUTE .STK-MED ONE Stop: 06/18/20 07:00 Midazolam HCl (Midazolam 1 Mg/Ml 2 Ml Sdv) Confirm Administered Dose 2 mg .ROUTE .STK-MED ONE Stop: 06/18/20 07:27 Mometasone Furoate/Formoterol Fumar (Formoterol/Mometasone 200-5 Mcg 8.8 Gm Inhaler) 2 puff IH BID [facility] Last Admin: 06/17/20 23:04 Dose: Not Given Documented by: Naloxone HCl (Naloxone 0.4 Mg/Ml Sdv) 0.4 mg IVPUSH Q2M PRN PRN Reason: Respiratory Distress Neostigmine Methylsulfate (Neostigmine Methylsulfate 1 Mg/Ml 5 Ml Syringe) Confirm Administered Dose 5 mg .ROUTE .STK-MED ONE Stop: 06/18/20 07:44 Ondansetron HCl (Ondansetron 4 Mg/2 Ml Sdv) Confirm Administered Dose 4 mg .ROUTE .STK-MED ONE Stop: 06/18/20 07:44 Pantoprazole Sodium (Pantoprazole 40 Mg Vial) 40 mg IV Q12H [facility] Last Admin: 06/18/20 20:35 Dose: 40 mg Documented by: Pantoprazole Sodium (Pantoprazole 40 Mg Vial) 80 mg IVPUSH ONETIME ONE Stop: 06/17/20 21:31 Last Admin: 06/17/20 21:50 Dose: 80 mg Documented by: Propofol (Propofol 200 Mg/20 Ml Sdv) Confirm Administered Dose 200 mg .ROUTE .STK-MED ONE Stop: 06/18/20 07:00 Propofol (Propofol 200 Mg/20 Ml Sdv) Confirm Administered Dose 200 mg .ROUTE .STK-MED ONE Stop: 06/18/20 07:27 Rocuronium [place] (Rocuronium 50 Mg/5 Ml Vial) Confirm Administered Dose 50 mg .ROUTE .STK-MED ONE Stop: 06/18/20 07:44 Sodium Chloride (Sodium Chloride 0.9% 10 Ml Syringe) 10 ml FLUSH ASDIRECTED PRN PRN Reason: Keep Vein Open Last Admin: 06/17/20 16:10 Dose: 10 ml Documented by: Sodium Chloride (Sodium Chloride 0.9% 10 Ml Syringe) 10 ml FLUSH ONETIME PRN PRN Reason: PER RADIOLOGY PROTOCOL Last Admin: 06/17/20 16:30 Dose: 10 ml Documented by: Succinylcholine Chloride (Succinylcholine 200 Mg/10 Ml Mdv) Confirm Administered Dose 200 mg .ROUTE .[facility] ONE Stop: 06/18/20 07:44 - Exam Quality Assessment: Reports: DVT Prophylaxis General: Reports: Alert, Oriented, Cooperative, Mild Distress Lungs: Reports: Clear to Auscultation, Normal Respiratory Effort Cardiovascular: Reports: Regular Rate, Regular Rhythm, No Murmurs GI/Abdominal Exam: Soft, No Organomegaly, Tender. No: Distended, Guarding, Rigid, Rebound
== END 2020-06-20 11:13 | disposition home or self-care (01) ==
LOC: JP.ED 13:50 → JP.MS 18:29
PROVIDERS: ADMIT Hospitalist; ATTEND Surgery
DX: K29.50 Unspecified chronic gastritis without bleeding (principal); K31.89 Other diseases of stomach and duodenum; R13.10 Dysphagia, unspecified; G89.29 Other chronic pain; K20.90 Esophagitis, unspecified without bleeding; E78.00 Pure hypercholesterolemia, unspecified; J44.9 Chronic obstructive pulmonary disease, unspecified; F17.210 Nicotine dependence, cigarettes, uncomplicated; Z01.812 Encounter for preprocedural laboratory examination; Z20.822 Contact with and (suspected) exposure to COVID-19; Z79.899 Other long term (current) drug therapy; Z88.8 Allergy status to other drugs, medicaments and biological substances; Z88.0 Allergy status to penicillin; Z88.5 Allergy status to narcotic agent; Z91.030 Bee allergy status
CPT/HCPCS: 0241U; 36415; 74177; 80048; 80076; 83690; 85025; 85027; 86140; 94640; 94762; 96374; 96375; 96376; 99217; 99219; 99225; 99284; 99285-25; A9270-GY; C9113; G0378; J0330; J1100; J1170; J2060; J2250; J2405; J2704; J2710; J3010; J3490; J7030; J7121; J7620-GY; Q9967

== ENCOUNTER 2021-10-28 23:33 | Inpatient (IN) | payer MEDICARE ==
[2021-10-28] MEDS ORDERED: Sodium Chloride 0.9% 10 ML Syringe FLUSH PRN (23:35)
[2021-10-28] MEDS ORDERED: Albuterol/Ipratropium 3.0-0.5 MG/3 ML Neb Soln NEB ONE (23:35)
[2021-10-29 00:21] LABS: ESTIMATED GFR 94 mL/min (>60)
[2021-10-29] MEDS ORDERED: Albuterol/Ipratropium 3.0-0.5 MG/3 ML Neb Soln ONE (00:36)
[2021-10-29] MEDS ORDERED: Acetaminophen/HYDROcodone 325-5 MG Tab PO PRN (02:56)
[2021-10-29] MEDS ORDERED: Ondansetron 4 MG/2 ML SDV IV PRN (02:56)
[2021-10-29] MEDS ORDERED: Acetaminophen 325 MG Tab PO PRN (02:56)
[2021-10-29] MEDS ORDERED: Morphine 2 MG/ML SYRINGE IVPUSH PRN (02:56)
[2021-10-29] MEDS ORDERED: LORazepam 2 MG/ML SDV IVPUSH PRN (03:21)
[2021-10-29] MEDS ORDERED: oxyCODONE 5 MG Tab PO PRN (03:24)
[2021-10-29] MEDS ORDERED: Azithromycin 500 MG in Sodium Chloride 0.9% 250 ML IV SCH (03:30)
[2021-10-29 04:26] LABS: ESTIMATED GFR 91 mL/min (>60)
[2021-10-29] MEDS: cefTRIAXone 1 GM in Sodium Chloride 0.9% 50 ML IV SCH (05:18)
[2021-10-29] MEDS ORDERED: Albuterol/Ipratropium 3.0-0.5 MG/3 ML Neb Soln NEB SCH (07:00)
[2021-10-29] MEDS: Budesonide 0.5 MG/2 ML Neb Susp NEB SCH ×2 (07:01→20:04)
[2021-10-29] MEDS: Albuterol 0.083% 2.5 MG/3 ML Neb Soln NEB SCH ×5 (07:01→23:19)
[2021-10-29] MEDS: Pantoprazole 40 MG Tab.CR PO SCH (07:47)
[2021-10-29] MEDS: Furosemide 40 MG/4 ML VIAL IVPUSH SCH ×2 (08:44→20:03)
[2021-10-29] MEDS: Spironolactone 25 MG Tab PO SCH (08:45)
[2021-10-29] MEDS: Clopidogrel 75 MG Tab PO SCH (08:45)
[2021-10-29] MEDS: Metoprolol Succinate 50 MG Tab.ER PO SCH (08:45)
[2021-10-29] MEDS ORDERED: Non-Formulary Medication 1 Each (Duloxetine [Cymbalta] 60 MG Cap) PO SCH (09:00)
[2021-10-29] MEDS ORDERED: Non-Formulary Medication 1 Each (Budesonide/Formoterol [Symbicort 160-4.5 Mcg Inhaler (6 G INH SCH (09:00)
[2021-10-29] MEDS: Formoterol/Mometasone 200-5 MCG 8.8 GM Inhaler IH SCH ×3 (09:13→20:03)
[2021-10-29] MEDS: oxyCODONE 5 MG Tab PO PRN ×2 (10:18→16:20)
[2021-10-29] MEDS: busPIRone 10 MG Tab PO SCH ×3 (10:19→20:03)
[2021-10-29] MEDS: DULoxetine 30 MG Cap PO SCH (10:19)
[2021-10-29] MEDS ORDERED: predniSONE 20 MG Tab PO ONE (10:30)
[2021-10-29] MEDS: Albuterol/Ipratropium 3.0-0.5 MG/3 ML Neb Soln NEB SCH ×3 (10:30→20:03)
[2021-10-29] MEDS: Diazepam 5 MG Tab PO PRN ×2 (12:37→20:04)
[2021-10-29] MEDS: Digoxin 125 MCG Tab PO SCH (12:37)
[2021-10-29] MEDS: Aspirin 81 MG Tab.EC PO SCH (12:39)
[2021-10-29] MEDS: tiZANidine 2 MG Tab PO PRN ×2 (12:41→18:37)
[2021-10-29] MEDS: Mirtazapine 15 MG Tab PO SCH (20:03)
[2021-10-29] MEDS: atorvaSTATin 20 MG Tab PO SCH (20:03)
[2021-10-29] MEDS ORDERED: SIMVASTATIN 5 MG PO SCH (21:00)
[2021-10-29] MEDS ORDERED: MIRTAZAPINE 30 MG PO SCH (21:00)
[2021-10-30] MEDS: oxyCODONE 5 MG Tab PO PRN ×4 (03:37→21:38)
[2021-10-30] MEDS: tiZANidine 2 MG Tab PO PRN ×4 (03:38→21:39)
[2021-10-30] MEDS: cefTRIAXone 1 GM in Sodium Chloride 0.9% 50 ML IV SCH (03:39)
[2021-10-30] MEDS: Diazepam 5 MG Tab PO PRN ×3 (07:08→23:32)
[2021-10-30] MEDS: predniSONE 20 MG Tab PO SCH (07:10)
[2021-10-30] MEDS: Pantoprazole 40 MG Tab.CR PO SCH (07:10)
[2021-10-30] MEDS: Formoterol/Mometasone 200-5 MCG 8.8 GM Inhaler IH SCH ×2 (07:11→20:12)
[2021-10-30] MEDS: Albuterol 0.083% 2.5 MG/3 ML Neb Soln NEB SCH ×2 (07:14→11:14)
[2021-10-30] MEDS: Albuterol/Ipratropium 3.0-0.5 MG/3 ML Neb Soln NEB SCH ×4 (07:14→20:15)
[2021-10-30] MEDS: Spironolactone 25 MG Tab PO SCH (09:24)
[2021-10-30] MEDS: Aspirin 81 MG Tab.EC PO SCH (09:24)
[2021-10-30] MEDS: Azithromycin 250 MG Tab PO SCH (09:24)
[2021-10-30] MEDS: Clopidogrel 75 MG Tab PO SCH (09:25)
[2021-10-30] MEDS: busPIRone 10 MG Tab PO SCH ×2 (09:25→20:12)
[2021-10-30] MEDS: Metoprolol Succinate 50 MG Tab.ER PO SCH (09:25)
[2021-10-30] MEDS: DULoxetine 30 MG Cap PO SCH (09:25)
[2021-10-30] MEDS: Furosemide 40 MG/4 ML VIAL IVPUSH SCH ×2 (09:26→20:13)
[2021-10-30] MEDS ORDERED: Albuterol 0.083% 2.5 MG/3 ML Neb Soln NEB PRN (11:21)
[2021-10-30] MEDS: Digoxin 125 MCG Tab PO SCH (13:01)
[2021-10-30] MEDS: Nystatin Crm 15 GM Tube TOP SCH ×2 (13:03→20:14)
[2021-10-30] MEDS: Budesonide 0.5 MG/2 ML Neb Susp NEB SCH (13:34)
[2021-10-30] MEDS: atorvaSTATin 20 MG Tab PO SCH (20:13)
[2021-10-30] MEDS: Mirtazapine 15 MG Tab PO SCH (20:14)
[2021-10-31] MEDS: cefTRIAXone 1 GM in Sodium Chloride 0.9% 50 ML IV SCH (04:38)
[2021-10-31] MEDS: Formoterol/Mometasone 200-5 MCG 8.8 GM Inhaler IH SCH ×2 (07:07→20:45)
[2021-10-31] MEDS: Albuterol/Ipratropium 3.0-0.5 MG/3 ML Neb Soln NEB SCH ×4 (07:07→20:45)
[2021-10-31] MEDS: Diazepam 5 MG Tab PO PRN ×2 (07:46→15:47)
[2021-10-31] MEDS: tiZANidine 2 MG Tab PO PRN ×3 (07:46→19:32)
[2021-10-31] MEDS: oxyCODONE 5 MG Tab PO PRN ×3 (07:47→19:32)
[2021-10-31] MEDS: predniSONE 20 MG Tab PO SCH (07:47)
[2021-10-31] MEDS: Pantoprazole 40 MG Tab.CR PO SCH (07:47)
[2021-10-31] MEDS ORDERED: Furosemide 20 MG Tab PO SCH (08:30)
[2021-10-31] MEDS: Azithromycin 250 MG Tab PO SCH (08:35)
[2021-10-31] MEDS: busPIRone 10 MG Tab PO SCH ×2 (08:35→20:45)
[2021-10-31] MEDS: Spironolactone 25 MG Tab PO SCH (08:36)
[2021-10-31] MEDS: Nystatin Crm 15 GM Tube TOP SCH ×2 (08:36→20:45)
[2021-10-31] MEDS: DULoxetine 30 MG Cap PO SCH (08:36)
[2021-10-31] MEDS: Clopidogrel 75 MG Tab PO SCH (08:36)
[2021-10-31] MEDS: Aspirin 81 MG Tab.EC PO SCH (08:36)
[2021-10-31] MEDS: Metoprolol Succinate 50 MG Tab.ER PO SCH (08:37)
[2021-10-31] MEDS: Furosemide 40 MG Tab PO SCH ×2 (08:42→13:44)
[2021-10-31] MEDS: Digoxin 125 MCG Tab PO SCH (13:44)
[2021-10-31] MEDS: Mirtazapine 15 MG Tab PO SCH (20:45)
[2021-10-31] MEDS: atorvaSTATin 20 MG Tab PO SCH (20:45)
[2021-11-01] MEDS: tiZANidine 2 MG Tab PO PRN ×2 (02:19→08:26)
[2021-11-01] MEDS: oxyCODONE 5 MG Tab PO PRN ×2 (02:19→08:26)
[2021-11-01] MEDS: Diazepam 5 MG Tab PO PRN ×2 (02:20→12:20)
[2021-11-01] MEDS: cefTRIAXone 1 GM in Sodium Chloride 0.9% 50 ML IV SCH (03:34)
[2021-11-01] MEDS: Albuterol/Ipratropium 3.0-0.5 MG/3 ML Neb Soln NEB SCH ×3 (06:57→14:34)
[2021-11-01] MEDS: Formoterol/Mometasone 200-5 MCG 8.8 GM Inhaler IH SCH (06:57)
[2021-11-01] MEDS: Pantoprazole 40 MG Tab.CR PO SCH (07:30)
[2021-11-01] MEDS: Furosemide 40 MG Tab PO SCH ×2 (07:30→14:16)
[2021-11-01] MEDS: predniSONE 20 MG Tab PO SCH (07:31)
[2021-11-01] MEDS: Metoprolol Succinate 50 MG Tab.ER PO SCH (08:24)
[2021-11-01] MEDS: Azithromycin 250 MG Tab PO SCH (08:24)
[2021-11-01] MEDS: Spironolactone 25 MG Tab PO SCH (08:24)
[2021-11-01] MEDS: Clopidogrel 75 MG Tab PO SCH (08:24)
[2021-11-01] MEDS: DULoxetine 30 MG Cap PO SCH (08:25)
[2021-11-01] MEDS: busPIRone 10 MG Tab PO SCH (08:25)
[2021-11-01] MEDS: Aspirin 81 MG Tab.EC PO SCH (08:26)
[2021-11-01] MEDS: Nystatin Crm 15 GM Tube TOP SCH (08:30)
[2021-11-01 10:41] VITALS: BP 123/73; PULSE 71
[2021-11-01] MEDS: Digoxin 125 MCG Tab PO SCH (14:16)
== END 2021-11-01 15:20 | disposition home or self-care (01) | DRG 189 ==
LOC: JP.ED 23:33 → JP.MS 10-29 02:49
PROVIDERS: ADMIT Family Medicine; ATTEND Internal Medicine
DX: J18.9 Pneumonia, unspecified organism (principal); J96.01 Acute respiratory failure with hypoxia; R41.0 Disorientation, unspecified; I42.9 Cardiomyopathy, unspecified; J40 Bronchitis, not specified as acute or chronic; G89.29 Other chronic pain; M54.9 Dorsalgia, unspecified; E78.5 Hyperlipidemia, unspecified; F32.A Depression, unspecified; I50.9 Heart failure, unspecified; I25.10 Atherosclerotic heart disease of native coronary artery without angina pectoris; E78.00 Pure hypercholesterolemia, unspecified; I11.0 Hypertensive heart disease with heart failure; K21.9 Gastro-esophageal reflux disease without esophagitis; M19.90 Unspecified osteoarthritis, unspecified site; G43.909 Migraine, unspecified, not intractable, without status migrainosus; F43.20 Adjustment disorder, unspecified; F41.9 Anxiety disorder, unspecified; Z20.822 Contact with and (suspected) exposure to COVID-19; I25.5 Ischemic cardiomyopathy; J43.1 Panlobular emphysema; R10.13 Epigastric pain; Z98.1 Arthrodesis status; Z85.118 Personal history of other malignant neoplasm of bronchus and lung; Z79.82 Long term (current) use of aspirin; Z79.52 Long term (current) use of systemic steroids; Z79.899 Other long term (current) drug therapy; Z88.6 Allergy status to analgesic agent; Z88.8 Allergy status to other drugs, medicaments and biological substances; Z88.0 Allergy status to penicillin; Z91.030 Bee allergy status; Z88.5 Allergy status to narcotic agent; Z79.02 Long term (current) use of antithrombotics/antiplatelets; Z90.49 Acquired absence of other specified parts of digestive tract; Z98.890 Other specified postprocedural states
CPT/HCPCS: 36415; 36600; 51702; 71045 ×2; 80053; 81001; 82803; 83880; 85025; 93005; 93010; 94640; 99285 ×2; J3490; U0002; 87040; 99233; 99238; A9270-GY; J0456; J0696; J1940; J7050; J7512; J7620

== ENCOUNTER 2021-11-13 21:28 | Emergency (ER) | payer MEDICARE ==
[2021-11-13] MEDS ORDERED: Albuterol/Ipratropium 3.0-0.5 MG/3 ML Neb Soln ONE (21:32)
[2021-11-13] MEDS ORDERED: Albuterol/Ipratropium 3.0-0.5 MG/3 ML Neb Soln NEB ONE (21:34)
[2021-11-13] MEDS ORDERED: Aspirin 81 MG Tab.Chew PO ONE (21:39)
[2021-11-13] MEDS ORDERED: Morphine 2 MG/ML SYRINGE IVPUSH ONE ×2 (21:40→21:47)
[2021-11-13] MEDS ORDERED: Ondansetron 4 MG/2 ML SDV IVPUSH ONE (21:47)
[2021-11-13 22:21] LABS: ESTIMATED GFR 58 mL/min (>60); TROPONIN I HIGH SENSITIVITY 23.3 pg/mL (<=60.3)
[2021-11-13] MEDS ORDERED: Furosemide 40 MG/4 ML VIAL IVPUSH ONE (22:26)
[2021-11-13] MEDS ORDERED: Sodium Chloride 0.9% 100 ML IV SCH (22:45)
[2021-11-13] MEDS ORDERED: Iopamidol 755 Mg/ML 100 ML Bottle IV SCH (22:45)
[2021-11-14] MEDS ORDERED: Morphine 2 MG/ML SYRINGE IVPUSH ONE ×2 (00:44→02:22)
[2021-11-14] MEDS ORDERED: Rivaroxaban 10 MG Tab PO ONE (03:47)
[2021-11-14 04:46] VITALS: BP 107/69; PULSE 84
== END 2021-11-14 04:45 | disposition home or self-care (01) ==
LOC: JP.ED 21:28
DX: J43.1 Panlobular emphysema (principal); I26.92 Saddle embolus of pulmonary artery without acute cor pulmonale; I25.10 Atherosclerotic heart disease of native coronary artery without angina pectoris; I11.0 Hypertensive heart disease with heart failure; I50.9 Heart failure, unspecified; K21.9 Gastro-esophageal reflux disease without esophagitis; F17.200 Nicotine dependence, unspecified, uncomplicated; Z88.0 Allergy status to penicillin; Z88.8 Allergy status to other drugs, medicaments and biological substances; Z91.030 Bee allergy status; Z88.5 Allergy status to narcotic agent; Z79.899 Other long term (current) drug therapy; Z79.82 Long term (current) use of aspirin; Z79.02 Long term (current) use of antithrombotics/antiplatelets; Z20.822 Contact with and (suspected) exposure to COVID-19
CPT/HCPCS: 36415; 71045; 71275; 80053; 83880; 84484; 85025; 85379; 85610; 85730; 93005; 94640; 96374; 96375; 96376; 99285; A9270; J1940; J2270; J2405; J3490; Q9967; U0002; J7620

== ENCOUNTER 2022-01-16 16:58 | Emergency (ER) | payer MEDICARE, OTHER ==
[2022-01-16 18:25] LABS: TROPONIN I HIGH SENSITIVITY 14.3 pg/mL (<=60.3)
[2022-01-16] MEDS ORDERED: Sodium Chloride 0.9% 10 ML Syringe FLUSH PRN (18:46)
[2022-01-16] MEDS ORDERED: Furosemide 40 MG/4 ML VIAL IVPUSH ONE (18:46)
[2022-01-16 20:49] VITALS: BP 119/85; PULSE 63
[2022-01-16] MEDS ORDERED: Ketorolac 30 MG/ML SDV IVPUSH ONE (20:57)
== END 2022-01-16 22:22 | disposition home or self-care (01) ==
LOC: JP.ED 16:58
DX: R00.1 Bradycardia, unspecified (principal); J44.9 Chronic obstructive pulmonary disease, unspecified; I11.0 Hypertensive heart disease with heart failure; I50.9 Heart failure, unspecified; E87.70 Fluid overload, unspecified; I25.10 Atherosclerotic heart disease of native coronary artery without angina pectoris; Z88.6 Allergy status to analgesic agent; Z88.8 Allergy status to other drugs, medicaments and biological substances; Z88.0 Allergy status to penicillin; Z88.5 Allergy status to narcotic agent; Z79.899 Other long term (current) drug therapy; Z79.82 Long term (current) use of aspirin; Z90.49 Acquired absence of other specified parts of digestive tract
CPT/HCPCS: 36415; 36600; 70450; 71045; 72125; 80048; 82803; 83880; 84484; 85025; 93005; 93010; 96374; 96375; 99283; 99284; J1885; J1940

== ENCOUNTER 2022-03-22 09:53 | Emergency (ER) | payer MEDICARE ==
[2022-03-22 10:26] VITALS: BP 100/70; PULSE 68
[2022-03-22] MEDS ORDERED: Albuterol/Ipratropium 3.0-0.5 MG/3 ML Neb Soln NEB ONE (10:53)
[2022-03-22] MEDS ORDERED: oxyCODONE 5 MG Tab PO ONE (10:53)
== END 2022-03-22 12:19 | disposition home or self-care (01) ==
LOC: JP.ED 09:53
DX: J43.9 Emphysema, unspecified (principal); I25.10 Atherosclerotic heart disease of native coronary artery without angina pectoris; I11.0 Hypertensive heart disease with heart failure; I50.9 Heart failure, unspecified; M19.90 Unspecified osteoarthritis, unspecified site; Z72.0 Tobacco use; Z88.8 Allergy status to other drugs, medicaments and biological substances; Z79.899 Other long term (current) drug therapy; Z88.0 Allergy status to penicillin; Z88.6 Allergy status to analgesic agent; Z88.4 Allergy status to anesthetic agent; Z88.5 Allergy status to narcotic agent; Z91.030 Bee allergy status; Z79.82 Long term (current) use of aspirin
CPT/HCPCS: 94640; 99283; A9270; J7620

== ENCOUNTER 2022-05-04 22:20 | Emergency (ER) | payer MEDICARE ==
[2022-05-04] MEDS ORDERED: Bacitracin Oint 1 GM U/D Packet TOP ONE (22:22)
[2022-05-04] MEDS ORDERED: Lidocaine 1% 5 ML VIAL INJECT ONE (22:22)
[2022-05-04] MEDS ORDERED: Lactated Ringers 1,000 ML IV SCH ×2 (22:45→23:45)
[2022-05-04 23:17] LABS: ESTIMATED GFR 40 mL/min (>60); TROPONIN I HIGH SENSITIVITY 16.2 pg/mL (<=60.3)
[2022-05-04 23:38] LABS: CORONAVIRUS COVID-19 NAA NEGATIVE (NEGATIVE)
[2022-05-05] MEDS ORDERED: Norepinephrine Bit/D5W Premix 4 MG in Premix Bag 1 BAG IV SCH (00:15)
[2022-05-05] MEDS ORDERED: Cefepime 2 GM in Sodium Chloride 0.9% 50 ML IV ONE (00:59)
[2022-05-05] MEDS ORDERED: Sodium Chloride 0.9% 1,000 ML IV SCH (01:00)
[2022-05-05] MEDS ORDERED: Diazepam 2 MG Tab PO ONE (01:30)
[2022-05-05] MEDS ORDERED: oxyCODONE 5 MG Tab PO ONE (01:30)
[2022-05-05 05:31] VITALS: PULSE 50
[2022-05-05 05:32] VITALS: BP 136/87
== END 2022-05-05 06:20 ==
LOC: JP.ED 22:20
DX: A41.9 Sepsis, unspecified organism (principal); R65.21 Severe sepsis with septic shock; N17.9 Acute kidney failure, unspecified; J96.91 Respiratory failure, unspecified with hypoxia; S81.811A Laceration without foreign body, right lower leg, initial encounter; S00.03XA Contusion of scalp, initial encounter; S80.811A Abrasion, right lower leg, initial encounter; I11.0 Hypertensive heart disease with heart failure; I50.814 Right heart failure due to left heart failure; J43.1 Panlobular emphysema; C34.92 Malignant neoplasm of unspecified part of left bronchus or lung; I25.10 Atherosclerotic heart disease of native coronary artery without angina pectoris; K21.9 Gastro-esophageal reflux disease without esophagitis; M19.90 Unspecified osteoarthritis, unspecified site; Z88.8 Allergy status to other drugs, medicaments and biological substances; Z79.02 Long term (current) use of antithrombotics/antiplatelets; Z79.82 Long term (current) use of aspirin; Z79.899 Other long term (current) drug therapy; Z20.822 Contact with and (suspected) exposure to COVID-19; W19.XXXA Unspecified fall, initial encounter
CPT/HCPCS: 0241U; 12001; 36415; 36600; 51702; 70450; 71045; 71045-26; 80053; 81001; 82803; 83605; 84484; 85025; 85610; 85730; 93005; 93010; 96361; 96365; 96366; 96368; 99285; 99285-25; A9270-GY; J0692; J7030; J7120

== ENCOUNTER 2022-06-18 06:38 | Emergency (ER) | payer MEDICARE ==
[2022-06-18] MEDS ORDERED: Sodium Chloride 0.9% 10 ML Syringe FLUSH PRN (06:41)
[2022-06-18] MEDS ORDERED: Rocuronium 50 MG/5 ML Vial ONE (06:56)
[2022-06-18] MEDS ORDERED: propofoL 100 ML ONE (06:58)
[2022-06-18] MEDS ORDERED: Etomidate 2 MG/ML 10 ML SDV IVPUSH ONE (07:05)
[2022-06-18] MEDS ORDERED: Rocuronium 50 MG/5 ML Vial IV ONE (07:05)
[2022-06-18 07:15] LABS: ESTIMATED GFR 71 mL/min (>60)
[2022-06-18] MEDS ORDERED: propofoL 100 ML IV SCH (07:15)
[2022-06-18] MEDS ORDERED: Levofloxacin/Dextrose 5%-Water 500 MG in Premix Bag 1 BAG IV ONE (07:16)
[2022-06-18] MEDS ORDERED: Sodium Chloride 0.9% 1,000 ML IV SCH ×3 (07:30→08:00)
[2022-06-18 07:54] VITALS: BP 92/63; PULSE 73
[2022-06-18] MEDS ORDERED: Bacitracin Oint 1 GM U/D Packet TOP ONE (08:14)
[2022-06-18] MEDS ORDERED: Bacitracin Oint 1 GM U/D Packet ONE (08:16)
== END 2022-06-18 08:20 ==
LOC: JP.ED 06:38
DX: T20.24XA Burn of second degree of nose (septum), initial encounter (principal); T27.2XXA Burn of other parts of respiratory tract, initial encounter; I25.10 Atherosclerotic heart disease of native coronary artery without angina pectoris; I11.0 Hypertensive heart disease with heart failure; I50.9 Heart failure, unspecified; E78.00 Pure hypercholesterolemia, unspecified; K21.9 Gastro-esophageal reflux disease without esophagitis; M19.90 Unspecified osteoarthritis, unspecified site; Z88.0 Allergy status to penicillin; Z88.8 Allergy status to other drugs, medicaments and biological substances; Z88.5 Allergy status to narcotic agent; Z91.030 Bee allergy status; X19.XXXA Contact with other heat and hot substances, initial encounter
CPT/HCPCS: 31500; 36415; 36600; 71045; 80053; 82803; 85025; 96365; 99285; 99291; J1956; J2704; J3490; J7030